=== PATIENT | female | born 1955 | race Caucasian/White ===

== ENCOUNTER → 2024-09-28 | Outpatient (CLI) | payer MEDICARE, BC, SELFPAY ==
--- NOTE | 2024-09-28 16:00 | XR_ITS ---
Exam: MRI knee without contrast, right complete Date and time of exam: September 28, 2024 1716 hrs. Comparison December 26, 2023 Indications: Knee pain 8 years, increasing in severity Technique: Multiple axial, coronal, and sagittal sections on the knee have been obtained. T2-Weighted sagittal, fat-suppressed images, TR 3,500, TE 62, T2 weighted coronal fat-saturated images, TR 3,500, TE 62 Proton density sagittal sections, TR 1800, TE 31. T-1 weighted coronal images, TR 524, TE 13.0 Findings: Medial meniscus anterior horn intact. Medial meniscus, body replaced by isointense signal and partially extruded from the joint space, coronal image 15. Posterior horn medial meniscus vertical tears inner margin sagittal image 7. Lateral meniscus anterior horn large horizontal linear tear communicating inferior articular surface near the inner margin Lateral meniscus, body large horizontal linear tear communicating inner margin Posterior horn lateral meniscus complex tears replacing the posterior horn Anterior cruciate ligament appears attenuated Posterior cruciate ligament appears attenuated Knee effusion is moderate with synovial debris. Quadriceps and patellar tendons appear intact. There is no evidence of tendinosis. Inflammatory change or fracture of Hoffa's fat pad is not seen. Medial patellar facet demonstrates severe thinning. Lateral patellar facet cartilage demonstrates severe thinning. Trochlear cartilage demonstrates severe thinning. Marrow signal adequate. Medial collateral ligament appears intact. No meniscocapsular separation is seen. Illiotibial band and fibular collateral ligament are intact. Biceps femoris tendons appear intact. Medial femoral condylar articular cartilage demonstrates moderate thinning. Lateral femoral condylar articular cartilage demonstratesmoderate thinning. Tibial plateau cartilage demonstrates moderate thinning. Impression: Extensive medial lateral meniscus tears Significant attenuation anterior and posterior cruciate ligaments Severe thinning cartilage patellofemoral joints
== END | disposition home or self-care (01) ==
LOC: SMRI 09-30 07:07
PROVIDERS: PCP Family Medicine; Referring Provider Orthopaedic Surgery Orthopaedic Trauma; Visit Provider Orthopaedic Surgery Orthopaedic Trauma
DX: S83.281A Other tear of lateral meniscus, current injury, right knee, initial encounter (principal); S83.241A Other tear of medial meniscus, current injury, right knee, initial encounter; X58.XXXA Exposure to other specified factors, initial encounter; M25.861 Other specified joint disorders, right knee
CPT/HCPCS: 73721

== ENCOUNTER → 2024-10-23 | Outpatient (CLI) | payer MEDICARE, BC, SELFPAY ==
--- NOTE | 2024-10-23 07:00 | XR_ITS ---
Exam: MRI knee without contrast, left Date and time of exam: October 23, 2024 at 1900 hrs. Indications: Left knee pain Technique: Multiple axial, coronal, and sagittal sections on the knee have been obtained. T2-Weighted sagittal, fat-suppressed images, TR 3,500, TE 62, T2 weighted coronal fat-saturated images, TR 3,500, TE 62 Proton density sagittal sections, TR 1800, TE 31. T-1 weighted coronal images, TR 524, TE 13.0 Findings: Medial meniscus anterior horn intact. Medial meniscus, body large horizontal linear tear. Posterior horn medial meniscus horizontal linear tear communicating inferior articular surface. Lateral meniscus anterior horn horizontal linear tear Lateral meniscus, body large horizontal linear tear Posterior horn lateral meniscus complex vertical and horizontal tears Anterior cruciate ligament mild sprain Posterior cruciate ligament appears intact. Knee effusion is moderate. Quadriceps and patellar tendons appear intact. There is no evidence of tendinosis. Inflammatory change or fracture of Hoffa's fat pad is not seen. Medial patellar facet demonstrates moderate thinning. Lateral patellar facet cartilage demonstrates moderate thinning. Trochlear cartilage demonstrates moderate thinning. Marrow signal increased in the distal femoral shaft, 23 mm, consider bone infarct. Medial collateral ligament appears intact. No meniscocapsular separation is seen. Illiotibial band and fibular collateral ligament are intact. Biceps femoris tendons appear intact. Medial femoral condylar articular cartilage demonstrates moderate thinning. Lateral femoral condylar articular cartilage demonstratesmoderate thinning. Tibial plateau cartilage demonstrates moderate thinning. Impression: Extensive medial lateral meniscus tears Mild sprain anterior cruciate ligament
--- NOTE | 2024-10-23 07:30 | XR_ITS ---
Examination: MRI lumbar spine without contrast Date and time of exam: October 23, 2024 1935 hrs. Indications: Patient fell April 2022 with injury to lower back, persistent lower back pain radiating down the legs numbness in the right first digit Technique: Multiple MRI axial and sagittal sections lumbar spine. Sagittal T2-weighted images, TR 3500, TE 118 T1 weighted transverse sections, TR 688 T8.5, T2-weighted sagittal sections T1 weighted sagittal sections TR 621, TE 30 T2 axial sections, TR 4, 190, TE 84. Findings: Adequate alignment lumbar vertebral bodies Moderately severe compression fracture, chronic L4 Moderate chronic compression fracture L5 No acute fracture Adequate marrow signal Diffuse lumbar disc desiccation No spondylolisthesis L5-S1 3 mm central lumbar disc bulge L4-L5 moderate overall spinal stenosis, 5 mm central lumbar disc bulge, facet arthropathy and thickening of ligamentum flavum with mild left L4 ganglionic compression L3-L4 left foraminal disc bulges but no ganglionic compression L2-L3 no disc protrusion L1-L2 no disc protrusion Impression: Chronic compression fractures L4 and L5 L5-S1 3 mm central lumbar disc bulge L4-L5 moderate overall spinal stenosis, 5 mm central lumbar disc bulge and mild left L4 ganglionic compression
== END | disposition home or self-care (01) ==
PROVIDERS: PCP Family Medicine; Referring Provider Orthopaedic Surgery Orthopaedic Trauma; Visit Provider Orthopaedic Surgery Orthopaedic Surgery of the Spine
DX: S83.282A Other tear of lateral meniscus, current injury, left knee, initial encounter (principal); S83.512A Sprain of anterior cruciate ligament of left knee, initial encounter; X58.XXXA Exposure to other specified factors, initial encounter; M48.56XA Collapsed vertebra, not elsewhere classified, lumbar region, initial encounter for fracture; M51.379 Other intervertebral disc degeneration, lumbosacral region without mention of lumbar back pain or lower extremity pain; M51.369 Other intervertebral disc degeneration, lumbar region without mention of lumbar back pain or lower extremity pain; M48.061 Spinal stenosis, lumbar region without neurogenic claudication; G95.20 Unspecified cord compression
CPT/HCPCS: 72148; 73721

== ENCOUNTER 2025-04-09 20:43 | Inpatient (IN) | payer MEDICARE, BC, SELFPAY ==
[2025-04-09 20:48] VITALS: BP 160/95; PULSE 83; RESP 18; TEMP 37.3; O2SAT 96
--- NOTE | 2025-04-09 20:48 | XR_ITS ---
Examination: CTA carotids with intravenous contrast CTA brain, head with intravenous contrast. 2-D sagittal, coronal reconstructions. 3-D reconstructions. Exam date and time: April 09, 2025 2106 hours INDICATIONS: Stroke alert, onset left-sided facial weakness beginning this morning CTDI: vol (mGy) 11.3 DLP: (mGycm) 442 Technique: Multiple CTA axial brain, head carotid images post intravenous contrast injection 75 cc, [id number]. 2-D sagittal, coronal reconstructions. 3-D reconstructions, 3-D post processing including vascular maximum intensity projection images. Low dose protocols were performed. One or more of the following dose reduction techniques were used; automated exposure control, adjustment of the mA and/or KV according to patient size, use of iterative reconstruction technique. Findings: No significant common carotid carotid bifurcation or internal carotid artery stenoses Dominant left vertebral artery in the neck with no critical stenoses No cerebral arteries depressed lateral occlusions or thrombus IMPRESSION: No significant neck arterial stenoses No cerebral large vessel occlusions or thrombus
--- NOTE | 2025-04-09 20:48 | XR_ITS ---
Examination: CT brain head without contrast. 2-D sagittal coronal reconstructions Date and time of exam:April 09, 20252058 hours INDICATIONS: Stroke alert, onset left-sided body weakness facial droop beginning 11:00 AM today CTDI: vol (mGy):43.4 DLP: (mGycm):819 Technique: Multiple CT axial sections of the brain have been obtained, 5 mm slice thickness. Contrast has not been administered. 2-D sagittal, coronal reconstructions have been obtained Low dose protocols were performed. One or more of the following dose reduction techniques were used; automated exposure control, adjustment of the mA and/or KV according to patient size, use of iterative reconstruction technique. Findings: No significant ventricular enlargement. Intra-axial or extra-axial hemorrhage density is not seen. No mass effect or midline shift Basal cisterns are not remarkable. Fourth ventricle is midline. Cranial vault intact. Impression: Negative for acute hemorrhage, mass effect or midline shift
--- NOTE | 2025-04-09 20:48 | EKG_ITS ---
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
--- NOTE | 2025-04-09 20:50 | EDNOTE_ITS ---
<Statement entered by Shweta Garcia MD - 04/10/25 21:40> As co-signing physician, I was present and available for consult prn. I concur with the plan and care as documented by the midlevel provider. Neuro Symptoms Deficit-RME/HPI General Chief Complaint: Neuro Symptoms/Deficit Stated Complaint: BALANCE PROBLEM Time Seen by Provider: 04/09/25 20:48 Arrival date/time: 04/09/25 20:43 RME / HPI RME / HPI Narrative: 70-year-old female patient with significant history of hypertension, hypothyroidism, was brought in by family for evaluation regarding left-sided weakness. Apparently last well-known time was 11 AM this morning patient noticed sudden onset of left-sided weakness, cannot write on the left hand patient is left-handed and dragging her feet on the left. Patient denies any headache. Patient also complained of left-sided neck pain. Denies any slurring of speech however there is obvious facial asymmetry noted also. Patient is not taking any blood thinner. Related Data Home Medications ?Medication ?Instructions ?Recorded ?Confirmed Levothyroxine * (SYNTHROID *) 100 mcg PO ACBR #0 tabs 08/20/16 05/04/18 armodafinil 250 mg tablet (Nuvigil) 250 mg PO QDAY ##0 08/20/16 05/04/18 amlodipine 10 mg tablet (Norvasc) 10 mg PO QDAY #0 tab s 01/14/17 05/04/18 gabapentin 300 mg capsule 300 mg PO TID 01/04/19 methylphenidate HCl 18 mg 36 mg PO QDAY 01/04/19 tablet,extended release 24 hr metronidazole 500 mg tablet 500 mg PO BID 01/04/19 (Flagyl) Previous Rx's ?Medication ?Instructions ?Recorded diazepam 10 mg tablet 10 mg PO BID PRN muscle spas m #6 04/27/24 tabs ibuprofen 600 mg tablet 600 mg PO Q8H PRN pain #14 t abs 04/27/24 Allergies Allergy/AdvReac Type Severity Reaction Status Date / Time codeine Allergy Severe Hives Verified 07/26/22 10:16 hydrocodone (From [place]) Allergy Severe Hives Verified 07/26/22 10:16 Sulfa (Sulfonamide Allergy Severe Hives Verified 07/06/21 14:49 Antibiotics) cephalexin AdvReac Severe caused Verified 07/06/21 14:49 colitis infection Review of Systems Review of Systems Narrative Review of Systems: Review of system reviewed and within normal limits except mentioned in HPI ED Exam Narrative Physical exam: VITAL SIGNS: Reviewed. GENERAL APPEARANCE: Alert and interactive, follows commands, no acute distress, HEAD AND FACE: Non-traumatic. Facial symmetry noted, I noticed some facial droop on the left side ENT: PERRL, pink conjunctivitis, eyelid no trauma, Mucous membrane moist. NECK: Supple, nontender, no nuchal rigidity. CHEST: No tenderness, no crepitus, no paradoxical movement, no retractions. LUNGS: Clear, well ventilated, symmetric, no rales, no wheezing, no ronchi, no stridor, good breath sounds bilaterally. HEART: Regular rate, regular rhythm, no murmur, no gallops. ABDOMEN: Soft, positive bowel sounds, nondistended, no guarding, nontender, no rebound, no masses, RECTAL: Deferred. GENITAL: Deferred. NEUROLOGICAL: Gross motor function intact sensory function intact, Appropriate for age. MUSCULOSKELETAL: low back nontender, full range of motion. EXTREMITIES: Nontender, full range of motion. SKIN: Color pink, dry, no rash, no lacerations, no abrasions, no contusions. LYMPHATICS: Deferred. Course Quality Measures none Orders Category Date Time Status Bedside Blood Glucose NOW Care 04/09/25 20:48 Completed COVID-19 Screening Questionnaire NOW Care 04/09/25 22:26 Active Melter Assistant NOW Care 04/09/25 20:48 Active Continuous Pulse Oximetry NOW Care 04/09/25 20:48 Completed Decision to Admit X1 Care 04/09/25 22:26 Active EKG (ED ONLY) *Do not use* NOW Care 04/09/25 20:48 Completed Fingerstick [Bedside Blood Glucose] NOW Care 04/09/25 20:47 Active In and Out Catheter NEEDED Care 04/09/25 20:48 Active Insert IV NOW Care 04/09/25 20:48 Active NIH Stroke Scale now Care 04/09/25 20:48 Active NPO NOW Care 04/09/25 20:48 Active Nurse Swallow Screen x1 Care 04/09/25 20:48 Active Consult to Neurology / Tele-Neurology Routine Cons 04/09/25 20:[address] angio stroke protocol Stat Exams 04/09/25 20:[address] stroke protocol Stat Exams 04/09/25 20:48 Completed EKG (ED Only) Stat Exams 04/09/25 20:48 Draft CBC Stat Lab 04/09/25 20:53 Completed Comprehensive Metabolic Panel Stat Lab 04/09/25 20:53 Results Drug Screen,Urine Stat Lab 04/09/25 21:46 Received HCG Titer if Positive Stat Lab 04/09/25 20:53 Results Magnesium Stat Lab 04/09/25 20:53 Results Partial Thromboplastin Time Stat Lab 04/09/25 20:53 Completed Prothrombin Time with INR Stat Lab 04/09/25 20:53 Completed Troponin I Stat Lab 04/09/25 20:53 Results Urinalysis Stat Lab 04/09/25 21:46 Received Urine Culture Stat Lab 04/09/25 21:46 Received Clopidogrel [Plavix] Med 04/09/25 21:15 Discontinued 300 mg PO X1 ONE Ondansetron Inj [Zofran Inj] Med 04/09/25 20:48 Active 4 mg IVP Q4HR PRN Oxygen Delivery NOW RT 04/09/25 20:48 Active Vital Signs Vital signs: Vital Signs Temperature 99.1 F 04/09/25 20:48 Pulse Rate 83 04/09/25 20:48 Respiratory Rate 18 04/09/25 20:48 Blood Pressure 160/95 H 04/09/25 20:48 Pulse Oximetry (%) 96 04/09/25 20:48 Oxygen Delivery Method Room Air 04/09/25 20:48 Neuro Symptoms / Deficit MDM Narrative MDM Narrative:: 70-year-old female patient with significant history of hypertension, hypothyroidism, was brought in by family for evaluation regarding left-sided weakness. Apparently last well-known time was 11 AM this morning patient noticed sudden onset of left-sided weakness, cannot write on the left hand patient is left-handed and dragging her feet on the left. Patient denies any headache. Patient also complained of left-sided neck pain. Denies any slurring of speech however there is obvious facial asymmetry noted also. Patient is not taking any blood thinner. EKG showed sinus bradycardia, ventricular to 53 bpm, OR interval 165 MS, no ST segment elevation or depression. Stroke alert was initiated right away on my initial evaluation. I was able to spoke with telemetry neurologist, who recommends loading dose of Plavix, and admit the patient for stroke workup. Patient is not a candidate for tPA since out of window. CT scan of the head and CT angiogram of the head and neck all came back unremarkable. Patient's neurological workup also came back normal. Plan of care discussed with the patient who agrees to be admitted for stroke workup. Patient data External records reviewed:: None Clinical information provided by:: patient Social determinants that could affect healthcare access:: none Patient has the following chronic illnesses:: Hypertension, hypothyroidism How is presenting disease/condition affected by chronic disease/condition?: exacerbated by Evaluation data The following diagnostics were reviewed and interpreted by me:: lab results, radiology exam(s) and EKG tracing(s) Lab and/or radiology exams considered but not ordered:: None Interpretation Summary: See results MDM Medications / Prescriptions Medications or Prescriptions considered but not ordered:: None Medication administrations:: Medication Administration History Ondansetron HCl (Ondansetron Inj 2 Mg/Ml Inj 2 Ml) 4 mg IVP Q4HR PRN PRN Reason: NAUSEA OR VOMITING Stop: 05/09/25 20:47 Discontinued Medications Clopidogrel Bisulfate (Clopidogrel Bisulfate 75 Mg Tablet) 300 mg PO X1 ONE Stop: 04/09/25 21:16 Last Admin: 04/09/25 21:25 Dose: 300 mg Documented By: HEMANT Plavix Consultations Consultation(s) initiated? (list below): No Diagnosis Neuro Differential Diagnosis: cerebrovascular accident and transient cerebral ischemia Most likely diagnosis given after review of the tests above:: CVA Admission Indicated Admission indicated?: indicated Admission Request Was there a request for admission?: Yes Admission Attestation Admission request attestation: Discussed case with Hospitalist service regarding admission. Discussed patients ED course, exam findings, labs, and radiology results. The Hospitalist [agreesto accept the patient for admission. Disposition Plan Disposition Plan: Admit Discharge Plan Plan Patient Disposition: Admit Acute Care w/in Hospital Discharge Disposition comment: Stable Prescriptions/Referrals Prescriptions/Med Rec: No Action metronidazole [Flagyl] 500 mg tablet 500 mg PO BID gabapentin 300 mg capsule 300 mg PO TID methylphenidate HCl 18 mg tablet extended release 24hr 36 mg PO QDAY armodafinil [Nuvigil] 250 MG tablet 250 mg PO QDAY Qty: 0 Levothyroxine * (SYNTHROID *) 100 MCG tablet 100 mcg PO ACBR Qty: 0 amlodipine [Norvasc] 10 MG tablet 10 mg PO QDAY Qty: 0 diazepam 10 mg tablet 10 mg PO BID PRN (Reason: muscle spasm) Qty: 6 0RF ibuprofen 600 mg tablet 600 mg PO Q8H PRN (Reason: pain) Qty: 14 0RF Problem List Clinical Impression: Acute CVA (cerebrovascular accident) Patient/Caregiver Discharge Instructions Print Language: Trinidadian Stand Alone Forms: Maria Elena Award Info., Patient Portal Info Letter
[2025-04-09 21:13] VITALS: BMI 26.3
[2025-04-09 21:18] VITALS: PULSE 79
[2025-04-09 21:18] LABS: Basophils # (Auto) 0.1 Thou/mm3 (0.0-0.2); Basophils % (Auto) 1 % (0-2.5); Eosinophils # (Auto) 0.3 Thou/mm3 (0.0-0.5); Eosinophils % (Auto) 4 % (0-10); Hematocrit 44.2 % (36.0-46.0); Hemoglobin 14.9 g/dL (12.0-16.0); Immature Granulocytes Auto 0.03 Thou/mm3 (0.00-0.00); Lymphocytes # (Auto) 1.9 Thou/mm3 (1.0-4.8); Lymphocytes % (Auto) 22 % (10-50); Mean Corpuscular HGB Conc 33.7 g/dl (31.0-37.0); Mean Corpuscular Hemoglobin 32.4 pg (25.0-35.0); Mean Corpuscular Volume 96 fL (80-100); Monocytes # (Auto) 0.6 Thou/mm3 (0.0-0.8); Monocytes % (Auto) 7 % (0-12); Neutrophils # (Auto) 5.9 Thou/mm3 (1.8-7.7); Neutrophils % (Auto) 67 % (37-80); Nucleated Red Blood Cell # 0.00 Thou/mm3 (0.00-0.00); Nucleated Red Blood Cell % 0 /100 WBC (0); Platelet Count 259 Thou/mm3 (140-440); RDW Standard Deviation 45.0 fL (36.4-46.3); Red Blood Count 4.60 Miln/mm3 (4.00-5.20); White Blood Count 8.9 Thou/mm3 (3.6-11.0)
--- NOTE | 2025-04-09 21:19 | PD.TNEURO ---
Tele Neuro Consultation Consultation Date 04/09/25 Most Recent Vital Signs Last Vital Signs Temp 99.1 F 04/09/25 20:48 Pulse 83 04/09/25 20:48 Resp 18 04/09/25 20:48 BP 160/95 H 04/09/25 20:48 Pulse Ox 96 04/09/25 20:48 O2 Del Method Room Air 04/09/25 20:48 Consultation Narrative [facility] Tele[facility]rology Consult Services Patient Name:???Nela Taylor Date of :???1955 Identification Number:??? Date of Service:???04/09/2025 20:47:38 Diagnosis:?I63.89 - Cerebrovascular accident (CVA) due to other mechanism ([facility]) Impression: ?70 yr old female with hx of HTN and thyroid disease presenting with left facial droop and left LE weakness. NIHSS of 3. CT negative for acute findings. CTA pending. Pt is outside the window for thrombolytic therapy. If CTA is negative for an LVO, recommend admission for further stroke workup. Our recommendations are outlined below. Recommendations: ? Stroke/Telemetry Floor ? Neuro Checks (Q2) ? Bedside Swallow Eval ? DVT Prophylaxis ? IV Fluids, Normal Saline ? Head of Bed 30 Degrees ? Euglycemia and Avoid Hyperthermia (PRN Acetaminophen) ? Bolus with Clopidogrel 300 mg bolus x1 and initiate dual antiplatelet therapy with Aspirin 81 mg daily and Clopidogrel 75 mg daily ? Antihypertensives PRN if Blood pressure is greater than 220/120 or there is a concern for End organ damage/contraindications for permissive HTN. If blood pressure is greater than 220/120 give labetalol PO or IV or Vasotec IV with a goal of 15% reduction in BP during the first 24 hours. Sign Out: ? Discussed with Emergency Department Provider Advanced Imaging:Advanced imaging has been ordered. Results pending. Metrics: Last Known Well: 04/09/2025 10:00:00 Dispatch Time: 04/09/2025 20:47:38 Arrival Time: 04/09/2025 20:50:00 Initial Response Time: 04/09/2025 20:50:18Symptoms: Left facial droop. Initial patient interaction: 04/09/2025 20:51:10 NIHSS Assessment Completed: 04/09/2025 20:55:48Patient is not a candidate for Thrombolytic. Thrombolytic Medical Decision: 04/09/2025 20:55:50Patient was not deemed candidate for Thrombolytic because of following reasons: LKW outside 4.[address] Head: I personally reviewed all the CT images that were available to me and it showed: no acute abnormalities Primary Provider Notified of Diagnostic Impression and Management Plan on: 04/09/2025 21:15:44 History of Present Illness:Patient is a 70 year old Female. Patient was brought by EMS for symptoms of Left facial droop. 70 yr old female with hx of HTN and thyroid disease presenting with left facial droop and left LE weakness. Pt report that she woke up around 1000am today with no issues. Then she developed neck pain and noticed that her balance was off. When she walks she feels that she move to the left. She was also noted to have left sided facial droop. No prior hx of stroke. ? Past Medical History: ?Hypertension ?There is no history of Stroke Medications: No Anticoagulant use? Antiplatelet use:?Yes?ASA 81mg daily Reviewed EMR for current medications Allergies:? Reviewed Social History: Drug Use: No Family History: There is no family history of premature cerebrovascular disease pertinent to this consultation ROS : 14 Points Review of Systems was performed and was negative except mentioned in HPI. Past Surgical History: There Is No Surgical History Contributory To Today?s Visit ? Examination: BP(164/96),?Pulse(73), 1A: Level of Consciousness - Alert; keenly responsive?+ 0 1B: Ask Month and Age - Both Questions Right?+ 0 1C: Blink Eyes & Squeeze Hands - Performs Both Tasks?+ 0 2: Test Horizontal Extraocular Movements - Normal?+ 0 3: Test Visual Mcnulty - No Visual Loss?+ 0 4: Test Facial Palsy (Use Grimace if Obtunded) - Minor paralysis (flat nasolabial fold, smile asymmetry)?+ 1 5A: Test Left Arm Motor Drift - No Drift for 10 Seconds?+ 0 5B: Test Right Arm Motor Drift - No Drift for 10 Seconds?+ 0 6A: Test Left Leg Motor Drift - Drift, but doesn't hit bed?+ 1 6B: Test Right Leg Motor Drift - No Drift for 5 Seconds?+ 0 7: Test Limb Ataxia (FNF/Heel-Case) - Ataxia in 1 Limb?+ 1 8: Test Sensation - Normal; No sensory loss?+ 0 9: Test Language/Aphasia - Normal; No aphasia?+ 0 10: Test Dysarthria - Normal?+ 0 11: Test Extinction/Inattention - No abnormality?+ 0 NIHSS Score:?3 Pre-Morbid Modified [place] Scale:0 Points = No symptoms at all Spoke with :?Dr. Rascon This consult was conducted in real time using interactive audio and video technology. Patient was informed of the technology being used for this visit and agreed to proceed. Patient located in hospital and provider located at home/office setting. Patient is being evaluated for possible acute neurologic impairment and high probability of imminent or life-threatening deterioration. I spent total of 31 minutes providing care to this patient, including time for face to face visit via telemedicine, review of medical records, imaging studies and discussion of findings with providers, the patient and/or family. Dr Lizandro Regalado [facility] For Inpatient follow-up with [facility] physician please call [facility] at . As we are not an outpatient service for any post hospital discharge needs please contact the hospital for assistance. If you have any questions for the [facility] physicians or need to reconsult for clinical or diagnostic changes please contact us via [facility] at . ?
--- NOTE | 2025-04-09 21:22 | PC.NURSE ---
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
[2025-04-09] MEDS: CLOPIDOGREL BISULFATE 75 MG TABLET 300 MG PO (21:25)
--- NOTE | 2025-04-09 21:30 | PC.NURSE ---
pt presented to ed for left side droping and left side weakness while walking. pt states that symptoms began around 11am 04/09/2025. pt states that she is legally blind from right eye. pt recently had a right knee replacement in december.
[2025-04-09 21:36] LABS: INR 1.0 (0.9-1.3); Partial Thromboplastin Time 26.0 Seconds (22.0-36.0); Prothrombin Time 11.1 Seconds (9.0-12.2)
[2025-04-09 21:47] LABS: Alanine Aminotransferase 39 U/L (10-49); Albumin, Serum 4.3 gm/dL (3.4-4.8); Albumin/Globulin Ratio 1.5 (1.2-2.2); Alkaline Phosphatase 77 U/L (46-116); Anion Gap 11 (7-16); Aspartate Amino Transferase 41 U/L (0-34); BUN/Creatinine Ratio 17 Ratio (12-20); Bilirubin,Total 0.6 mg/dL (0.3-1.2); Blood Urea Nitrogen 17 mg/dL (9-23); Calcium 10.0 mg/dL (8.3-10.6); Calcium (Corrected) 10.0 mg/dL (8.5-10.1); Carbon Dioxide 26.6 mMol/L (20.0-31.0); Chloride 97 mMol/L (98-107); Creatinine (Component) 1.0 mg/dL (0.6-1.3); Estimated Creatinine Clearance 53.1 mL/min (>60); Globulin 2.8 gm/dL (2.3-3.5); Glucose 164 mg/dL (74-106); Magnesium 2.2 mg/dL (1.6-2.6); Osmolality,Calculated 275 (275-295); Potassium 3.9 mMol/L (3.4-5.1); Sodium 135 mMol/L (136-145); Total Protein 7.1 gm/dL (5.7-8.2); Troponin I < 0.002 ng/mL (0.0-0.045); eGFR > 60 See Note
[2025-04-09 21:48] VITALS: BP 133/85
[2025-04-09 21:49] VITALS: BP 133/85; PULSE 72; RESP 13; TEMP 36.9; O2SAT 97
[2025-04-09 21:54] LABS: Collection Type, Urine Clean Catch
[2025-04-09 22:22] LABS: Bilirubin,Urine Negative (Negative); Blood,Urine Negative (Negative); Clarity,Urine Clear (Clear/Hazy); Color,Urine Yellow (Lt Yel-Yel); Glucose, Urine Negative (Negative); Ketones,Urine Negative (Negative); Leukocyte Esterase,Urine Positive (Negative); Nitrite,Urine Positive (Negative); PH,Urine 6.5 (5.0-7.0); Protein,Urine Negative (Neg - Trace); RBC,Urine 10 /hpf (0-3); Specific Gravity,Urine 1.047 (1.001-1.035); Squamous Epithelial Cell,Urine 8 /hpf (0-5); Urobilinogen,Urine Negative mg/dL (0.0-1.0); WBC,Urine 15 /hpf (0-5)
[2025-04-09 22:39] LABS: HCG Titer if Positive Negative
--- NOTE | 2025-04-09 22:46 | ECHO_ITS ---
Transthoracic Echo Report Ht (in): 66 Wt (lb): 163 Exam Location: Echo Lab Status: Preadmit Counter Intelligence: Mikaela Lee Indications: Procedure Performed: BP: 129 / 62 HR: 62 Technical Quality: Technically difficult study MEASUREMENTS (Male / Female) Normal Values 2D ECHO LV Diastolic Diameter PLAX 4.5 cm 4.2 - 5.9 / 3.9 - 5.3 cm LV Systolic Diameter PLAX 3.1 cm IVS Diastolic Thickness 1.0 cm 0.6 - 1.0 / 0.6 - 0.9 cm LVPW Diastolic Thickness 1.1 cm 0.6 - 1.0 / 0.6 - 0.9 cm LV Relative Wall Thickness 0.5 LVOT Diameter 2.0 cm Aortic Root Diameter 3.1 cm LV Ejection Fraction MOD 4C 51.2 % LV Cardiac Index MOD 4C 1376.1 cm?/min?m? LV Ejection Fraction 4C AL 52.0 % LV Cardiac Index 4C AL 1518.7 cm?/min?m? LA Volume Index 21.6 cm?/m? 16 - 28 cm?/m? Ascending Aorta Diameter 3.0 cm M-MODE Aortic Root Diameter MM 2.7 cm LA Systolic Diameter MM 3.2 cm LA Ao Ratio MM 1.2 AV Cusp Separation MM 2.0 cm DOPPLER AV Peak Velocity 112.0 cm/s AV Peak Gradient 5.0 mmHg AV Mean Gradient 2.0 mmHg AV Velocity Time Integral 26.1 cm AI Peak Velocity 241.5 cm/s AI Peak Gradient 23.3 mmHg AI Pressure Half Time 1037.0 ms LVOT Peak Velocity 78.5 cm/s LVOT Peak Gradient 2.5 mmHg LVOT Velocity Time Integral 19.3 cm LVOT Cardiac Index 2010.5 cm?/min?m? AV Area Cont Eq vti 2.3 cm? AV Area Cont Eq pk 2.2 cm? MV Area PHT 3.7 cm? Mitral E Point Velocity 45.6 cm/s Mitral A Point Velocity 77.6 cm/s Mitral E to A Ratio 0.6 LV E' Lateral Velocity 6.9 cm/s Mitral E to LV E' Lateral Ratio 6.7 LV E' Septal Velocity 4.2 cm/s Mitral E to LV E' Septal Ratio 10.8 PV Peak Velocity 76.0 cm/s PV Peak Gradient 2.3 mmHg FINDINGS Left Ventricle Normal left ventricular size, wall thickness, systolic function with no obvious regional wall motion abnormalities.there is grade I diastolic dysfunction of the left ventricle (impaired relaxation pattern). The ejection fraction is visually estimated at 55-60 %. Right Ventricle The right ventricle is normal in size and systolic function. Left Atrium The left atrium is normal by two-dimensional, color flow and Doppler imaging with no structural abnormalities, no thrombus formation present. Right Atrium The right atrium is normal by two-dimensional imaging, color flow and Doppler imaging with no structural abnormalities, no thrombus formation present. Atrial Septum The interatrial septum appears normal with no evidence of a shunt. Aorta The aorta is normal by two-dimensional, color flow and Doppler interrogation. Mitral Valve The mitral valve is normal by two-dimensional, color flow and Doppler interrogation. There is no significant mitral valve regurgitation, stenosis or prolapse. Aortic Valve The aortic valve is trileaflet and normal by two-dimensional, color flow and Doppler interrogation. Mild aortic valve regurgitation. Tricuspid Valve The tricuspid valve is normal by two-dimensional, color flow and Doppler interrogation. There is trace tricuspid valve regurgitation. Pulmonic Valve The pulmonic valve is not well visualized. There is no significant pulmonic valve regurgitation. Vessels The pulmonary artery appears normal. The inferior vena cava pulmonary and hepatic veins appear normal. Pericardium The pericardium is normal by two-dimensional imaging. There is no significant pericardial effusion. CONCLUSIONS Indication: Stroke Negative bubbly study Bubble study negative for any PFO or ASD. Consider KIRAN if high index of clinical suspicion. Normal LV size and function with an estimated EF of 55 to 60%. Grade 1 diastolic dysfunction noted. Normal RV size and function. Normal RVSP. Mild aortic valve sclerosis without stenosis. Trace MR and TR. No pericardial effusion. Sammy Mercado (Electronically Signed) Final Date: 10 April 2025 13:00
--- NOTE | 2025-04-09 22:48 | PD.RESHP ---
Documentation for date of: 04/09/25 HPI History of Present Illness Chief complaint: Left facial droop, left lower extremity weakness History of present illness: 70-year-old female with past medical history of hypertension and hypothyroidism presenting to the ED on 04/09 with left facial droop and left lower extremity weakness. Patient states that sometime around 12 PM on 04/09 she started experiencing at first left neck pain followed by gradually worsening left facial droop and left lower extremity weakness. Patient also states that she noticed that her writing started becoming smaller than it usually is. Patient's family members told her to come to the ED as her symptoms did not resolve but also did not worsen as the day went on. She denies having any other similar symptoms in the past but does state that one of her sons also had strokelike episode in the past which she called a TIA. Patient denies having any concerning cardiac symptoms at this time such as chest pain, palpitations, shortness of breath and denies having any fever/chills or sick contacts. Patient has been seen in the past by Dr. Dean cardiology in [place] for palpitations but EKG at the time was unremarkable. Patient was told that she does not need to follow-up with Dr. Dean again. Medical history: As stated above Surgical history: Right knee replacement and left thumb surgery Allergies: Codeine causes hives, hydrocodone causes hives, sulfa causes hives, cephalexin colitis like infection? Medications: Pending med rec Family history: Patient denies having any family history of stroke/heart attack but son had a TIA? Social history: Patient lives in [place] with , denies any alcohol, tobacco or illicit drug use ROS: All 12 systems assessed and the patient denies unless otherwise stated in HPI In the ED, patient presented hypertensive 160/95, heart rate 83, respiratory 18, afebrile satting 96 on room air. Pertinent lab findings included sodium 135, chloride 97, EGFR greater than 60, magnesium 2.2, troponin less than 0.002. Urinalysis was negative for any signs of infection and U tox was also negative. Head CT showed no acute findings in head CTA neck showed no significant neck arterial stenosis or LVO. EKG showed sinus rhythm with short SC interval, left axis deviation, right bundle branch block and ST depressions noted from V4-V6. Teleneurology was consulted in the ED who agreed with patient with an NIHSS score of 3 and provided recommendations for admission. Patient will be admitted for stroke rule out along with an order of MR stroke protocol and physical therapy consultation. Exam Vital Signs Temp Pulse Resp BP Pulse Ox O2 Del Method 98.4 F 72 13 133/85 H 97 Room Air 04/09/25 21:49 04/09/25 21:49 04/09/25 21:49 04/09/25 21:49 04/09/25 21:49 04/09/25 21:49 Narrative Exam Physical Exam: GENERAL: Awake, answering questions appropriately, appears stated age HEENT: NC/AT. Moist mucosa. PERRLA/EOMI. CARDIO: Heart RRR, no obvious murmurs, no JVD. PULM: No coughing or visible SOB. Lungs CTA B/L. GI: Abdomen soft, NT/ND, +BS. SKIN/MSK/EXT: Scar from right knee replacement noted. No wounds/discoloration/rashes/edema/amputations. +Pedal pulses present B/L. NEURO: Oriented x3, cranial nerves II to XII grossly intact, [id number] test intact, muscle strength in upper and lower extremities 5 out of 5, child psychologist strength 5 out of 5, Moves extremities x4, no focal neurologic deficits noted Results: Labs 04/09/25 20:53 04/09/25 20:53 Labs: Short CBC 04/09/25 Range/Units 20:53 WBC 8.9 (3.6-11.0) Thou/mm3 Hgb 14.9 (12.0-16.0) g/dL Hct 44.2 (36.0-46.0) % Plt Count 259 (140-440) Thou/mm3 BMP 04/09/25 20:53 Sodium 135 L Potassium 3.9 Chloride 97 L Carbon Dioxide 26.6 BUN 17 Creatinine 1.0 Glucose 164 H Calcium 10.0 Cardiac Enzymes 04/09/25 Range/Units 20:53 Troponin I < 0.002 (0.0-0.045) ng/mL Liver Function 04/09/25 Range/Units 20:53 Total Bilirubin 0.6 (0.3-1.2) mg/dL AST 41 H (0-34) U/L ALT 39 (10-49) U/L Alkaline Phosphatase 77 (46-116) U/L Albumin 4.3 (3.4-4.8) gm/dL Urine 04/09/25 Range/Units 21:46 Urine Color Yellow (Lt Yel-Yel) Urine Clarity Clear (Clear/Hazy) Urine pH 6.5 (5.0-7.0) Ur Specific [place] 1.047 H (1.001-1.035) Urine Protein Negative (Neg - Trace) Urine Glucose (UA) Negative (Negative) Quality Measures Quality Measures none Advance care planning discussed with:: patient Medications Home Medications and Allergies Home Medications ?Medication ?Instructions ?Recorded ?Confirmed ?Type Levothyroxine * (SYNTHROID *) 100 mcg PO ACBR #0 tabs 08/20/16 04/09/25 History armodafinil 250 mg tablet (Nuvigil) 250 mg PO QDAY ##0 08/20/16 04/09/25 History amlodipine 10 mg tablet (Norvasc) 10 mg PO QDAY #0 tabs 01/14/17 04/09/25 History gabapentin 300 mg capsule 300 mg PO TID 01/04/19 04/09/25 History methylphenidate HCl 18 mg 36 mg PO QDAY 01/04/19 04/09/25 History tablet,extended release 24 hr metronidazole 500 mg tablet 500 mg PO BID 01/04/19 04/09/25 History (Flagyl) dupilumab 300 mg/2 mL subcutaneous 300 mg subcut .q2week 04/09/25 04/09/25 History syringe (Dupixent) modafinil 200 mg tablet 200 mg PO QDAY 04/09/25 04/09/25 History nebivolol 10 mg tablet 10 mg PO QDAY 04/09/25 04/09/25 History Allergies Allergy/AdvReac Type Severity Reaction Status Date / Time codeine Allergy Severe Hives Verified 07/26/22 10:16 hydrocodone (From [place]) Allergy Severe Hives Verified 07/26/22 10:16 Sulfa (Sulfonamide Allergy Severe Hives Verified 07/06/21 14:49 Antibiotics) cephalexin AdvReac Severe caused Verified 07/06/21 14:49 colitis infection Visit Medications Acetaminophen (Acetaminophen 325 Mg Tablet) 650 mg PO Q6H PRN PRN Reason: PAIN SCALE 1-3 (mild Stop: 05/09/25 22:43 Aspirin (Aspirin Ec 81 Mg Tabec) 81 mg PO QDAY WILLIAM Stop: 05/10/25 08:59 Clopidogrel Bisulfate (Clopidogrel Bisulfate 75 Mg Tablet) 75 mg PO QDAY WILLIAM Stop: 05/10/25 08:59 Heparin Sodium (Porcine) (Heparin Sod Inj 5000 Unit/Ml Vial) 5,000 unit SC Q12HR WILLIAM Stop: 04/24/25 08:59 Ondansetron HCl (Ondansetron Inj 2 Mg/Ml Inj 2 Ml) 4 mg IVP Q4HR PRN PRN Reason: NAUSEA OR VOMITING Stop: 05/09/25 20:47 Sennosides (Senna Tablet) 1 tab PO QDAY PRN; Protocol PRN Reason: constipation Stop: 05/09/25 22:43 Discontinued Medications Clopidogrel Bisulfate (Clopidogrel Bisulfate 75 Mg Tablet) 300 mg PO X1 ONE Stop: 04/09/25 21:16 Last Admin: 04/09/25 21:25 Dose: 300 mg Assessment & Plan Plan 70-year-old female with past medical history of hypertension and hypothyroidism presenting to the ED on 04/09 with left facial droop and left lower extremity weakness will be admitted for stroke rule out along with an order of MR stroke protocol and physical therapy consultation. #Stroke rule out #Possible TIA? As noted above, patient presented with neurologic symptoms starting at around 12 PM on 04/09 which did not subside until she presented to the ED On examination, patient neurologic exam is grossly unremarkable at this time During ED workup, teleneurology was consulted and with patient NIHSS score of [address] showed no acute findings head CTA neck showed no significant neck arterial stenosis or LVO. EKG showed sinus rhythm with short SC interval, left axis deviation, right bundle branch block and ST depressions noted from V4-V6 Plan: Continue aspirin and Plavix Started patient on atorvastatin 40 mg p.o. 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 Zander Whalen DO PGY-2 Internal Medicine - GME Attending Provider Attestation/Addendum After examination of the patient and review of the clinical data I feel that this patient needs admission to the hospital for further treatment/evaluation. I have discussed and was present for the essential components of the history, physical examination, diagnosis, and treatment plan with the resident. I agree with the patient's care as documented by the resident and amended herein by me. Roger Fermin DO. Although this document has been carefully reviewed, there may still be some phonetic and other typographical errors. These errors are purely grammatical due to imperfections in the software program and should not be construed in any way to compromise the substance of the patient's medical care during this visit. Patient seen and evaluated in the ED. Patient is a 70-year-old female with a significant past medical history of hypertension, hypothyroidism, COPD, presented to the ED for left lower extremity weakness and left facial droop which began around noon on 04/09. She also endorses agraphia. Denies similar symptoms in the past however per family may have had a TIA in the past. Denies chest pain, palpitations, headache, shortness of breath, vision trouble. Apparently she did follow-up with cardiology in the past for palpitations however was informed she did not need any recurrent visits. Patient subsequently admitted for CVA rule out. In the ED, vital signs stable, patient was afebrile, SpO2 97% on room air. CBC unremarkable, BMP only demonstrated a chloride of 97. UA was positive however patient asymptomatic, U tox unremarkable, CT head negative for any acute intracranial pathology, or acute stroke, CTA unremarkable, EKG demonstrating NSR. Teleneurology consulted, recommended usual stroke precautions to include neurochecks, bedside swallow eval, DVT prophylaxis, IVF, HOB at 30 degrees, DAPT with aspirin and Plavix and permissive hypertension. Patient subsequently admitted to telemetry, in-house neurology consulted, MRI brain ordered, echo ordered, speech therapy ordered, will continue DAPT, will allow for permissive hypertension for the next 24 to 48 hours, lipid panel and A1c have been ordered and are pending. ED did order urine culture however patient asymptomatic urinary rosales and so will defer antibiotics at this time. Will restart home medications as appropriate.
[2025-04-09 22:59] VITALS: BMI 26.2
[2025-04-09 23:13] VITALS: PULSE 79; RESP 100; RESP 18; O2SAT 100
[2025-04-09] MEDS: INSULIN LISPRO (AdmeLOG) 1 UNIT/0.01 ML UNIT SC (23:43)
[2025-04-10] VITALS (8 sets, daily range): BP systolic 127–158; BP diastolic 74–97; PULSE 58–112; RESP 18–95; TEMP 36.1–36.5; O2SAT 93–100; BMI 24.7
[2025-04-10 00:01] LABS: Amphetamine/Methamp Scrn,U Negative (Negative); Barbiturate Screen,Urine Negative (Negative); Benzodiazepines Screen,Urine Negative (Negative); Benzoylecgonine Screen, Ur Negative (Negative); Fentanyl Screen,Urine Negative (Negative); Opiate Screen,Urine Negative (Negative); THC Screen,Urine Negative (Negative)
[2025-04-10] MEDS: LEVOTHYROXINE SODIUM 100 MCG TABLET PO (05:08)
[2025-04-10 06:17] LABS: Basophils # (Auto) 0.1 Thou/mm3 (0.0-0.2); Basophils % (Auto) 1 % (0-2.5); Eosinophils # (Auto) 0.4 Thou/mm3 (0.0-0.5); Eosinophils % (Auto) 6 % (0-10); Hematocrit 44.1 % (36.0-46.0); Hemoglobin 14.9 g/dL (12.0-16.0); Immature Granulocytes Auto 0.01 Thou/mm3 (0.00-0.00); Lymphocytes # (Auto) 1.5 Thou/mm3 (1.0-4.8); Lymphocytes % (Auto) 27 % (10-50); Mean Corpuscular HGB Conc 33.8 g/dl (31.0-37.0); Mean Corpuscular Hemoglobin 32.3 pg (25.0-35.0); Mean Corpuscular Volume 96 fL (80-100); Monocytes # (Auto) 0.5 Thou/mm3 (0.0-0.8); Monocytes % (Auto) 9 % (0-12); Neutrophils # (Auto) 3.2 Thou/mm3 (1.8-7.7); Neutrophils % (Auto) 57 % (37-80); Nucleated Red Blood Cell # 0.00 Thou/mm3 (0.00-0.00); Nucleated Red Blood Cell % 0 /100 WBC (0); Platelet Count 226 Thou/mm3 (140-440); RDW Standard Deviation 44.8 fL (36.4-46.3); Red Blood Count 4.61 Miln/mm3 (4.00-5.20); White Blood Count 5.7 Thou/mm3 (3.6-11.0)
[2025-04-10 06:38] LABS: Alanine Aminotransferase 31 U/L (10-49); Albumin, Serum 3.8 gm/dL (3.4-4.8); Albumin/Globulin Ratio 1.3 (1.2-2.2); Alkaline Phosphatase 67 U/L (46-116); Anion Gap 9 (7-16); Aspartate Amino Transferase 31 U/L (0-34); BUN/Creatinine Ratio 11 Ratio (12-20); Bilirubin,Total 0.6 mg/dL (0.3-1.2); Blood Urea Nitrogen 9 mg/dL (9-23); Calcium 9.0 mg/dL (8.3-10.6); Calcium (Corrected) 9.2 mg/dL (8.5-10.1); Carbon Dioxide 27.8 mMol/L (20.0-31.0); Cardiac Risk Estimate 3.8 RATIO (3.7-5.6); Chloride 102 mMol/L (98-107); Cholesterol 189 mg/dL (132-200); Creatinine (Component) 0.8 mg/dL (0.6-1.3); Estimated Creatinine Clearance 60.4 mL/min (>60); Globulin 3.0 gm/dL (2.3-3.5); Glucose 128 mg/dL (74-106); HDL Cholesterol 50 mg/dL (40-60); LDL Cholesterol,Calculated 121 mg/dL (0-130); Magnesium 2.1 mg/dL (1.6-2.6); Osmolality,Calculated 278 (275-295); Phosphorous 3.9 mg/dL (2.4-5.1); Potassium 3.8 mMol/L (3.4-5.1); Sodium 139 mMol/L (136-145); Total Protein 6.8 gm/dL (5.7-8.2); Triglycerides 92 mg/dL (30-150); eGFR > 60 See Note
[2025-04-10 07:16] LABS: Glucose Estimated Average 120 mg/dL (80-131); Hemoglobin A1C 5.8 % Hgb (4.8-6.0)
[2025-04-10] MEDS: HEPARIN SOD INJ 5000 UNIT/ML VIAL SC ×2 (08:25→20:07)
[2025-04-10] MEDS: ACETAMINOPHEN 325 MG TABLET 650 MG PO (08:25)
[2025-04-10] MEDS: ASPIRIN EC 81 MG TABEC PO (08:25)
[2025-04-10] MEDS: CLOPIDOGREL BISULFATE 75 MG TABLET PO (08:26)
--- NOTE | 2025-04-10 10:03 | ESPR_ITS ---
Documentation for date of: 04/10/25 Subjective Subjective Interval history: Patient seen and examined at bedside. She continues to report facial droop and difficulty with handwriting. Denies headache, nausea, vomiting, dizziness, vision changes, or confusion. This morning she again felt transient weakness in her left leg while standing at the sink, though no fall occurred. She reports overall improvement compared to admission. Exam Vital Signs Temp Pulse Resp BP Pulse Ox O2 Del Method 97.0 F 60 18 132/80 H 96 Room Air 04/10/25 08:00 04/10/25 08:00 04/10/25 08:00 04/10/25 08:00 04/10/25 08:00 04/10/25 08:00 Narrative Exam General: Awake, alert, cooperative, in no acute distress HEENT: NCAT, moist mucous membranes, PERRLA, EOMI, no visual deficits Neck: Supple, no lymphadenopathy or stiffness CV: RRR, no murmurs, rubs, or gallops Lungs: Clear to auscultation bilaterally, no rales or wheezes, non-labored breathing Abdomen: Soft, non-tender, non-distended, positive bowel sounds Extremities: No edema, no cyanosis, 2+ pulses bilaterally, full ROM Neuro: Oriented x3, CN II?XII grossly intact except for persistent L facial droop, 5/5 strength in all extremities, intact sensation, micrographia persists Objective Labs 04/10/25 05:38 04/10/25 05:38 Labs: Laboratory Results - last 24 hr 04/09/25 04/09/25 04/10/25 20:53 21:46 05:38 WBC 8.9 5.7 RBC 4.60 4.61 Hgb 14.9 14.9 Hct 44.2 44.1 MCV 96 96 MCH 32.4 32.3 MCHC 33.7 33.8 RDW Std Deviation 45.0 44.8 Plt Count 259 226 D Neut % (Auto) 67 57 Lymph % (Auto) 22 27 [place] % (Auto) 7 9 Eos % (Auto) 4 6 Baso % (Auto) 1 1 Neut # (Auto) 5.9 3.2 Lymph # (Auto) 1.9 1.5 [place] # (Auto) 0.6 0.5 Eos # (Auto) 0.3 0.4 Baso # (Auto) 0.1 0.1 Immature Gran # (Auto) 0.03 H 0.01 H Absolute Nucleated RBC 0.00 0.00 Immature Gran % 0 0 Nucleated RBC % 0 0 PT 11.1 INR 1.0 APTT 26.0 Sodium 135 L 139 Potassium 3.9 3.8 Chloride 97 L 102 Carbon Dioxide 26.6 27.8 Anion Gap 11 9 BUN 17 9 Creatinine 1.0 0.8 Estim Creat Clear Calc 53.1 L 60.4 L eGFR > 60 > 60 BUN/Creatinine Ratio 17 11 L Glucose [address] Glu mg/dL 120 Hemoglobin A1c 5.8 Calculated Osmolality 275 278 Calcium 10.0 9.0 Corrected Calcium 10.0 9.2 Phosphorus 3.9 Magnesium 2.2 2.1 Total Bilirubin 0.6 0.6 AST 41 H 31 ALT 39 31 Alkaline Phosphatase 77 67 Troponin I < 0.002 Total Protein 7.1 6.8 Albumin 4.3 3.8 D Globulin 2.8 3.0 Albumin/Globulin Ratio 1.5 1.3 Triglycerides 92 Cholesterol 189 LDL Cholesterol, Calc 121 HDL Cholesterol 50 Cholesterol/HDL Ratio 3.8 Ur Collection Type Clean Catch Urine Color Yellow Urine Clarity Clear Urine pH 6.5 Ur Specific [place] 1.047 H Urine Protein Negative Urine Glucose (UA) Negative Urine Ketones Negative Urine Blood Negative Urine Nitrite Positive Urine Bilirubin Negative Urine Urobilinogen (Auto) Negative Ur Leukocyte Esterase Positive Urine RBC 10 H Urine WBC 15 H Ur Squamous Epith Cells 8 H Urine Bacteria None Urine Opiates Screen Negative Urine Fentanyl Screen Negative Ur Barbiturates Screen Negative U Amphetamin/Meth Scrn Negative U Benzodiazepines Scrn Negative U Cocaine Metab Screen Negative U Marijuana (THC) Screen Negative HCG (Qual) Negative Quality Measures Quality Measures none Advance care planning discussed with:: patient Assessment & Plan Assessment Current Active Medications: Generic Name Dose Route Start Last Admin Trade Name Freq PRN Reason Stop Dose Admin Acetaminophen 650 mg 04/09/25 22:44 04/10/25 08:25 Acetaminophen 325 Mg Tablet PO 05/09/25 22:43 650 mg Q6H PRN Administration PAIN SCALE 1-3 (mild Albuterol 2 puff 04/10/25 05:54 Albuterol Inh 8 Gm INH 05/09/25 22:57 Q4H PRN sob Aspirin 81 mg 04/10/25 09:00 04/10/25 08:25 Aspirin Ec 81 Mg Tabec PO 05/10/25 08:59 81 mg QDAY WILLIAM Administration Atorvastatin Calcium 40 mg 04/10/25 21:00 Atorvastatin Calcium 20 Mg Tablet PO 05/10/25 20:59 HS WILLIAM Clopidogrel Bisulfate 75 mg 04/10/25 09:00 04/10/25 08:26 Clopidogrel Bisulfate 75 Mg Tablet PO 05/10/25 08:59 75 mg QDAY WILLIAM Administration Dextrose 25 ml 04/09/25 22:49 Dextrose 50%-Water Inj 50 Ml Syringe IV 05/09/25 22:48 Q15MIN PRN BG 50-70 responsive npo pt Dextrose 50 ml 04/09/25 22:49 Dextrose 50%-Water Inj 50 Ml Syringe IV 05/09/25 22:48 Q15MIN PRN BG <50 OR BG <70 & pt unresponsive Glucagon 1 mg 04/09/25 22:49 Glucagon Inj 1 Mg Vial IM Q15MIN PRN BG <70, and no IV access Heparin Sodium (Porcine) 5,000 unit 04/10/25 09:00 04/10/25 08:25 Heparin Sod Inj 5000 Unit/Ml Vial SC 04/24/25 08:59 5,000 unit Q12HR WILLIAM Administration Insulin Human Lispro 0 unit 04/10/25 07:30 04/10/25 08:20 Insulin Lispro (Admelog) 1 Unit/0.01 Ml Unit SC 05/10/25 07:29 Not Given ACHS [facility] Protocol Levothyroxine Sodium 100 mcg 04/10/25 06:00 04/10/25 05:08 Levothyroxine Sodium 100 Mcg Tablet PO 05/10/25 05:59 100 mcg ACBR WILLIAM Administration Ondansetron HCl 4 mg 04/09/25 20:48 Ondansetron Inj 2 Mg/Ml Inj 2 Ml IVP 05/09/25 20:47 Q4HR PRN NAUSEA OR VOMITING Sennosides 1 tab 04/09/25 22:44 Senna Tablet PO 05/09/25 22:43 QDAY PRN constipation Protocol Plan 70F with HTN and hypothyroidism presenting with acute L facial droop, LLE weakness, and micrographia, concerning for possible TIA or evolving CVA. Still has persistent symptoms with mild improvement. # Stroke rule out / Possible TIA Persistent facial droop, micrographia, and transient subjective LLE weakness CT/CTA negative TTE with normal EF (55?60%) and negative bubble study MRI still pending Passed swallow evaluation ? now on cardiac diet Plan: * Continue dual antiplatelet (ASA 81 mg + Clopidogrel 75 mg daily) * Continue Atorvastatin 40 mg nightly * Q2 neuro checks * Allow permissive hypertension for 24 hrs * Resume home medications after 24 hrs if stable * PT evaluation to assess mobility * Monitor MRI results once available # Hypertension BP stable; permissive HTN in effect Plan: * Hold home antihypertensives x24 hrs, reassess afterward * Resume Amlodipine if stable # Hypothyroidism Plan: * Resume Levothyroxine after 24 hrs # Hyperlipidemia Plan: * Continue Atorvastatin, monitor for myopathy * Review lipid panel if done # Hyperglycemia Plan: * Sliding scale insulin * A1c pending Health Maintenance: * Diet: Cardiac, now PO after passing swallow eval * IVF: NS * DVT prophylaxis: Heparin SQ * Code: Full * Disposition: Continue stroke/TIA workup; awaiting MRI; ongoing PT eval ----- Plan discussed with attending physician Dr. Michelle Gill MD PGY-1 Internal Medicine Attending Provider Attestation/Addendum I attest that I was physically present for the evaluation, physical examination, lab and imaging review of the patient with the residents. I discussed the case with the residents and agree with the findings and plans of care as documented above. Patient is a 70 years old female with past medical history of hypertension, hypothyroidism who presented to the ED with complaint of facial droop and left lower extremity weakness. She was admitted overnight for management of acute CVA/TIA. At bedside, continues to have facial droop, difficulty in handwriting and difficulty ambulating. Awaiting brain MRI, physical therapy evaluation. Yisel Martinez MD
--- NOTE | 2025-04-10 18:43 | PD.RESCONSUL ---
HPI Data of Consult Requesting Physician: Carlos Fermin DO Admitting Provider: Carlos Fermin DO Attending Provider: Carlos Fermin DO Primary Care Provider: Physician No Primary/Family Consult Narrative History of present illness: Ms. Taylor is a 70-year-old female with past medical history of hypertension, hypothyroidism, hyperlipidemia who presented on 04/09 with left-sided weakness in the face and lower extremity. Initial NIHSS 3. Patient assessed at bedside. She notes increased slurred speech that has developed since yesterday. She reports that she no longer feels weak on the left side, and that her left side of the mouth has always had a slight droop at rest. She denies headache, changes in vision, weakness, urinary symptoms including urgency, frequency. Patient notes that when she stands she veers to the left, though this is only positional on standing and not occur at rest when she is laying down or sitting. Patient also notes that her writing has changed. She notes that her letters are smaller when she does the crossword puzzle cc:: cc: Carlos Fermin DO Review of Systems Review of Systems Narrative Review of Systems: 14 point review systems negative other than HPI Exam Vital Signs Temp Pulse Resp BP Pulse Ox O2 Del Method 97.0 F 64 19 158/95 H 96 Room Air 04/10/25 16:00 04/10/25 16:00 04/10/25 16:00 04/10/25 16:00 04/10/25 16:00 04/10/25 16:00 Narrative Exam General: No acute distress, well nourished Eye: PERRL, EOMI, normal conjunctiva, no scleral icterus HENT: Normocephalic, atraumatic, hearing intact to conversation at normal volume, moist oral mucosa Neck: Supple, non-tender, no JVD, no lymphadenopathy Lungs: Non-labored respirations, symmetric chest rise Heart: Peripheral pulses intact bilaterally Abdomen: Soft, non-tender, non-distended Musculoskeletal: Normal range of motion and strength Skin: Skin is warm, dry, no rashes or lesions. Psychiatric: Cooperative, appropriate mood and affect Neurologic: Mental status: Orientation: Oriented to person, place, time, and situation Communication: Patient is cooperative and can follow simple instructions Language:Mildly slurred speech, normal rate and volume, comprehension intact Cranial nerves: CN II: Visual hsu intact CN III: Pupils equal, round, and reactive to light CN III, IV, : No gaze deviation, no nystagmus Horizontal pursuit: intact Vertical pursuit: intact Ptosis: none CN V: Facial sensation to light touch intact bilaterally at the forehead, cheeks, and jaw line CN VII: Face symmetric, no facial droop appreciated on smile (patient's left mouth lower than right at baseline) CN VIII: Able to hear and respond to conversation at normal volume, intact to finger rub CN IX, X: Palate elevation symmetric, uvula midline CN XI: Head turn and shoulder shrug strong, symmetric bilaterally CN XII: Normal tongue protrusion without deviation, no fasciculations Motor: Normal bulk and tone No atrophy No abnormal movements or fasciculations Muscle strength: Shoulder abduction: R 5/5 L 5/5 Elbow flexion: R 5/5 L 5/5 Elbow extension: R 5/5 L 5/5 Hip flexion: R 5/5 L 5/5 Hip extension: R 5/5 L 5/5 Knee flexion: R 5/5 L 5/5 Knee extension: R 5/5 L 5/5 Sensory: RUE: Light touch intact LUE: Light touch intact RLE: Light touch intact LLE: Light touch intact Reflexes: Biceps (C5-6): R 2+ L 2+ Brachioradialis (C5-6): R 2+ L 2+ Triceps (C7-8): R 2+ L 2+ Patellae (L3-4): R 2+ L 2+ Achilles (S1-2):R 2+ L 2+ No clonus Romberg: negative Gait: Normal stance, stride length, and arm swing Normal pivot turn without instability Results Labs 04/11/25 05:49 04/11/25 05:49 Labs: Short CBC 04/09/25 04/10/25 Range/Units 20:53 05:38 WBC 8.9 5.7 (3.6-11.0) Thou/mm3 Hgb 14.9 14.9 (12.0-16.0) g/dL Hct 44.2 44.1 (36.0-46.0) % Plt Count 259 226 D (140-440) Thou/mm3 BMP 04/09/25 04/10/25 20:53 05:38 Sodium 135 L 139 Potassium 3.9 3.8 Chloride 97 L 102 Carbon Dioxide 26.6 27.8 BUN 17 9 Creatinine 1.0 0.8 Glucose 164 H 128 H Calcium 10.0 9.0 Cardiac Enzymes 04/09/25 Range/Units 20:53 Troponin I < 0.002 (0.0-0.045) ng/mL Liver Function 04/09/25 04/10/25 Range/Units 20:53 05:38 Total Bilirubin 0.6 0.6 (0.3-1.2) mg/dL AST 41 H 31 (0-34) U/L ALT 39 31 (10-49) U/L Alkaline Phosphatase 77 67 (46-116) U/L Albumin 4.3 3.8 D (3.4-4.8) gm/dL Urine 04/09/25 Range/Units 21:46 Urine Color Yellow (Lt Yel-Yel) Urine Clarity Clear (Clear/Hazy) Urine pH 6.5 (5.0-7.0) Ur Specific [place] 1.047 H (1.001-1.035) Urine Protein Negative (Neg - Trace) Urine Glucose (UA) Negative (Negative) Quality Measures Quality Measures none Advance care planning discussed with:: patient Medications Home Medications and Allergies Home Medications ?Medication ?Instructions ?Recorded ?Confirmed ?Type Levothyroxine * (SYNTHROID *) 100 mcg PO ACBR #0 tabs 08/20/16 04/10/25 History armodafinil 250 mg tablet (Nuvigil) 250 mg PO QDAY ##0 08/20/16 04/09/25 History amlodipine 10 mg tablet (Norvasc) 10 mg PO QDAY #0 tabs 01/14/17 04/09/25 History gabapentin 300 mg capsule 300 mg PO TID 01/04/19 04/09/25 History methylphenidate HCl 18 mg 36 mg PO QDAY 01/04/19 04/09/25 History tablet,extended release 24 hr metronidazole 500 mg tablet 500 mg PO BID 01/04/19 04/09/25 History (Flagyl) dupilumab 300 mg/2 mL subcutaneous 300 mg subcut .q2week 04/09/25 04/09/25 History syringe (Dupixent) modafinil 200 mg tablet 200 mg PO QDAY 04/09/25 04/09/25 History nebivolol 10 mg tablet 10 mg PO QDAY 04/09/25 04/09/25 History alendronate 70 mg tablet 70 mg PO .WEEKLY 04/10/25 04/10/25 History duloxetine 60 mg capsule,delayed 60 mg PO DAILY 04/10/25 04/10/25 History release magnesium carb,citrate,oxide 420 mg PO DAILY 04/10/25 04/10/25 History (Magnesium Complex) tramadol 50 mg tablet 50 mg PO Q8H PRN pain 04/10/25 04/10/25 History Allergies Allergy/AdvReac Type Severity Reaction Status Date / Time codeine Allergy Severe Hives Verified 07/26/22 10:16 hydrocodone (From [place]) Allergy Severe Hives Verified 07/26/22 10:16 Sulfa (Sulfonamide Allergy Severe Hives Verified 07/06/21 14:49 Antibiotics) cephalexin AdvReac Severe caused Verified 07/06/21 14:49 colitis infection Visit Medications Acetaminophen (Acetaminophen 325 Mg Tablet) 650 mg PO Q6H PRN PRN Reason: PAIN SCALE 1-3 (mild Stop: 05/09/25 22:43 Last Admin: 04/10/25 08:25 Dose: 650 mg Albuterol (Albuterol Inh 8 Gm) 2 puff INH Q4H PRN PRN Reason: sob Stop: 05/09/25 22:57 Aspirin (Aspirin Ec 81 Mg Tabec) 81 mg PO QDAY [facility] Stop: 05/10/25 08:59 Last Admin: 04/10/25 08:25 Dose: 81 mg Atorvastatin Calcium (Atorvastatin Calcium 20 Mg Tablet) 40 mg PO HS [facility] Stop: 05/10/25 20:59 Clopidogrel Bisulfate (Clopidogrel Bisulfate 75 Mg Tablet) 75 mg PO QDAY [facility] Stop: 05/10/25 08:59 Last Admin: 04/10/25 08:26 Dose: 75 mg Dextrose (Dextrose 50%-Water Inj 50 Ml Syringe) 25 ml IV Q15MIN PRN PRN Reason: BG 50-70 responsive npo pt Stop: 05/09/25 22:48 Dextrose (Dextrose 50%-Water Inj 50 Ml Syringe) 50 ml IV Q15MIN PRN PRN Reason: BG <50 OR BG <70 & pt unresponsive Stop: 05/09/25 22:48 Glucagon (Glucagon Inj 1 Mg Vial) 1 mg IM Q15MIN PRN PRN Reason: BG <70, and no IV access Heparin Sodium (Porcine) (Heparin Sod Inj 5000 Unit/Ml Vial) 5,000 unit SC Q12HR [facility] Stop: 04/24/25 08:59 Last Admin: 04/10/25 08:25 Dose: 5,000 unit Insulin Human Lispro (Insulin Lispro (Admelog) 1 Unit/0.01 Ml Unit) 0 unit SC ACHS [facility]; Protocol Stop: 05/10/25 07:29 Last Admin: 04/10/25 17:53 Dose: Not Given Levothyroxine Sodium (Levothyroxine Sodium 100 Mcg Tablet) 100 mcg PO ACBR [facility] Stop: 05/10/25 05:59 Last Admin: 04/10/25 05:08 Dose: 100 mcg Ondansetron HCl (Ondansetron Inj 2 Mg/Ml Inj 2 Ml) 4 mg IVP Q4HR PRN PRN Reason: NAUSEA OR VOMITING Stop: 05/09/25 20:47 Sennosides (Senna Tablet) 1 tab PO QDAY PRN; Protocol PRN Reason: constipation Stop: 05/09/25 22:43 Discontinued Medications Albuterol (Albuterol Inh 8 Gm) 2 puff INH PRN PRN PRN Reason: sob Stop: 05/09/25 22:57 Clopidogrel Bisulfate (Clopidogrel Bisulfate 75 Mg Tablet) 300 mg PO X1 ONE Stop: 04/09/25 21:16 Last Admin: 04/09/25 21:25 Dose: 300 mg Insulin Human Lispro (Insulin Lispro (Admelog) 1 Unit/0.01 Ml Unit) 0 unit SC Q6HR [facility]; Protocol Stop: 05/10/25 00:00 Last Admin: 04/09/25 23:43 Dose: 1 unit Assessment & Plan Plan # Left-sided weakness of face and LLE Patient initially presented to the ED with left-sided weakness of the face and lower extremity. LKW 7 at 12 PM. Initial NIHSS 3. BP and glucose within normal limits, no electrolyte abnormalities Symptoms have now resolved, though she does have mild slurred speech. Patient also notes imbalance that is positional on standing. Not noted on physical exam as Romberg was negative and patient's gait was unremarkable. CT head without contrast was negative for acute hemorrhage, midline shift, mass effect. CTA head/neck was negative for LVO. EKG showed normal sinus rhythm at 71 with right bundle branch block, QTc 474 A1c 5.8, troponins within normal limits, lipids within normal limits, UDS negative TTE with normal EF (55?60%) and negative bubble study Plan: - Pending MRI brain stroke protocol - Continue aspirin, Plavix, atorvastatin - Permissive hypertension #UTI Patient denies urinary symptoms including burning, urgency, frequency Plan: - Pending urine culture - Management per primary team Plan discussed with Dr. Shawnee Alexander, PGY1 Attending Provider Attestation/Addendum I independently reviewed the patient's record and agree with resident's findings, assessment and plan of care. Clinical presentation: Suggestive of TIA could have been brought on by UTI. Follow-up with MRI brain continue with aspirin Plavix and statin for now.
[2025-04-10] MEDS: INSULIN LISPRO (AdmeLOG) 1 UNIT/0.01 ML UNIT SC (20:06)
[2025-04-10] MEDS: ATORVASTATIN CALCIUM 20 MG TABLET 40 MG PO (20:07)
[2025-04-11] VITALS (9 sets, daily range): BP systolic 132–159; BP diastolic 78–92; PULSE 60–83; RESP 17–97; TEMP 36.1–36.7; O2SAT 96–99; BMI 24.7
--- NOTE | 2025-04-11 | XR_ITS ---
Examinations: MRI Brain without intravenous contrast. MRI brain with intravenous contrast MRA brain with intravenous contrast. MRA brain without intravenous contrast MRA neck with intravenous contrast Date and time of exam: April 11, 2025 1017 hours INDICATIONS: Stroke alert April 09, 2025, onset focal neurologic deficit including left facial droop and left lower extremity weakness Technique: Multiple axial and sagittal images of the brain have been obtained Siemens high-resolution 1.5 Neelima short bore scanner is utilized. Sagittal sections, T1-weighted, TR 500, TE 14 Axial sections proton density and T2-weighted, TR 3,000, TE 34, TR 3,000, TE 91 Inversion recovery axial images, TR 9,260, TE 111, TI 2,500 Diffusion weighted images, axial sections, TR 4,800, TE 128, B value 1,000 Axial sections, ADC map, TR 4,800, TE 128. Contrast images have been obtained post intravenous 20 cc Gadolinium. T1-weighted axial and coronal images post contrast have been obtained. Angiographic images of neck and brain are obtained pre and post contrast. 3-D post processing performed, including brain, extracranial neck arterial maximum intensity projections Findings: Sellaturcica is not enlarged. The optic chiasm and infundibular stalk are not remarkable. Prepontine and interpeduncular cisterns are not enlarged. No localized enlargement of the medulla or maribel. Fourth ventricle and cerebellar tonsils normal in position. Subacute hemorrhage is not seen. Fourth ventricle is midline. Mass in the cerebellopontine angle region is not evident. 7th and 8th nerve complexes exhibits symmetry. Globes are symmetrical with no retro-orbital mass. Increased white matter signal moderate Diffusion-weighted images [id number] mm focus restricted diffusion right basal ganglia with matching signal deficit on the ADC map. Mass-effect upon the ventricular system is not identified. Abnormal contrast enhancement is no abnormal enhancement. MRA brain carotid images no significant carotid stenoses, no large vessel cerebral occlusions Impression: 20 mm acute infarct right basal ganglia
[2025-04-11] MEDS: LEVOTHYROXINE SODIUM 100 MCG TABLET PO (05:18)
[2025-04-11 06:22] LABS: Basophils # (Auto) 0.0 Thou/mm3 (0.0-0.2); Basophils % (Auto) 1 % (0-2.5); Eosinophils # (Auto) 0.3 Thou/mm3 (0.0-0.5); Eosinophils % (Auto) 5 % (0-10); Hematocrit 45.1 % (36.0-46.0); Hemoglobin 14.9 g/dL (12.0-16.0); Immature Granulocytes Auto 0.02 Thou/mm3 (0.00-0.00); Lymphocytes # (Auto) 1.4 Thou/mm3 (1.0-4.8); Lymphocytes % (Auto) 24 % (10-50); Mean Corpuscular HGB Conc 33.0 g/dl (31.0-37.0); Mean Corpuscular Hemoglobin 32.0 pg (25.0-35.0); Mean Corpuscular Volume 97 fL (80-100); Monocytes # (Auto) 0.6 Thou/mm3 (0.0-0.8); Monocytes % (Auto) 10 % (0-12); Neutrophils # (Auto) 3.7 Thou/mm3 (1.8-7.7); Neutrophils % (Auto) 61 % (37-80); Nucleated Red Blood Cell # 0.00 Thou/mm3 (0.00-0.00); Nucleated Red Blood Cell % 0 /100 WBC (0); Platelet Count 201 Thou/mm3 (140-440); RDW Standard Deviation 44.7 fL (36.4-46.3); Red Blood Count 4.65 Miln/mm3 (4.00-5.20); White Blood Count 6.1 Thou/mm3 (3.6-11.0)
[2025-04-11 06:44] LABS: Alanine Aminotransferase 32 U/L (10-49); Albumin, Serum 3.8 gm/dL (3.4-4.8); Albumin/Globulin Ratio 1.2 (1.2-2.2); Alkaline Phosphatase 62 U/L (46-116); Anion Gap 11 (7-16); Aspartate Amino Transferase 33 U/L (0-34); BUN/Creatinine Ratio 14 Ratio (12-20); Bilirubin,Total 0.7 mg/dL (0.3-1.2); Blood Urea Nitrogen 11 mg/dL (9-23); Calcium 9.2 mg/dL (8.3-10.6); Calcium (Corrected) 9.4 mg/dL (8.5-10.1); Carbon Dioxide 26.2 mMol/L (20.0-31.0); Chloride 101 mMol/L (98-107); Creatinine (Component) 0.8 mg/dL (0.6-1.3); Estimated Creatinine Clearance 60.4 mL/min (>60); Globulin 3.1 gm/dL (2.3-3.5); Glucose 129 mg/dL (74-106); Magnesium 1.5 mg/dL (1.6-2.6); Osmolality,Calculated 277 (275-295); Phosphorous 4.0 mg/dL (2.4-5.1); Potassium 4.1 mMol/L (3.4-5.1); Sodium 138 mMol/L (136-145); Total Protein 6.9 gm/dL (5.7-8.2); eGFR > 60 See Note
[2025-04-11] MEDS: Magnesium Sulfate 4 GM Ivpb 4 GM/50 ML BAG IV (08:18)
[2025-04-11] MEDS: ACETAMINOPHEN 325 MG TABLET 650 MG PO (08:19)
[2025-04-11] MEDS: ASPIRIN EC 81 MG TABEC PO (08:19)
[2025-04-11] MEDS: CLOPIDOGREL BISULFATE 75 MG TABLET PO (08:20)
[2025-04-11] MEDS: ONDANSETRON INJ 2 MG/ML INJ 2 ML 4 MG IVP (08:21)
[2025-04-11] MEDS: HEPARIN SOD INJ 5000 UNIT/ML VIAL SC ×2 (08:25→21:13)
--- NOTE | 2025-04-11 11:46 | PC.SS ---
Update: MRI is pending. Neurology is consulting.
--- NOTE | 2025-04-11 12:54 | PD.RESPRO ---
Documentation for date of: 04/11/25 Subjective Subjective Interval history: Patient seen at bedside, reports no new symptoms. Exam Vital Signs Temp Pulse Resp BP Pulse Ox O2 Del Method 97.2 F 61 21 H 141/83 H 99 Room Air 04/11/25 08:00 04/11/25 08:00 04/11/25 08:00 04/11/25 08:00 04/11/25 08:00 04/11/25 08:00 Narrative Exam General: No acute distress, well nourished Eye: PERRL, EOMI, normal conjunctiva, no scleral icterus HENT: Normocephalic, atraumatic, hearing intact to conversation at normal volume, moist oral mucosa Neck: Supple, non-tender, no JVD, no lymphadenopathy Lungs: Non-labored respirations, symmetric chest rise Heart: Peripheral pulses intact bilaterally Abdomen: Soft, non-tender, non-distended Musculoskeletal: Normal range of motion and strength Skin: Skin is warm, dry, no rashes or lesions. Psychiatric: Cooperative, appropriate mood and affect Neurologic: Mental status: Orientation: Oriented to person, place, time, and situation Communication: Patient is cooperative and can follow simple instructions Language:Mildly slurred speech, normal rate and volume, comprehension intact Cranial nerves: CN II: Visual hsu intact CN III: Pupils equal, round, and reactive to light CN III, IV, : No gaze deviation, no nystagmus Horizontal pursuit: intact Vertical pursuit: intact Ptosis: none CN V: Facial sensation to light touch intact bilaterally at the forehead, cheeks, and jaw line CN VII: Face symmetric, no facial droop appreciated on smile (patient's left mouth lower than right at baseline) CN VIII: Able to hear and respond to conversation at normal volume, intact to finger rub CN IX, X: Palate elevation symmetric, uvula midline CN XI: Head turn and shoulder shrug strong, symmetric bilaterally CN XII: Normal tongue protrusion without deviation, no fasciculations Motor: Normal bulk and tone No atrophy No abnormal movements or fasciculations Muscle strength: Shoulder abduction: R 5/5 L 5/5 Elbow flexion: R 5/5 L 5/5 Elbow extension: R 5/5 L 5/5 Hip flexion: R 5/5 L 5/5 Hip extension: R 5/5 L 5/5 Knee flexion: R 5/5 L 5/5 Knee extension: R 5/5 L 5/5 Sensory: RUE: Light touch intact LUE: Light touch intact RLE: Light touch intact LLE: Light touch intact Reflexes: Biceps (C5-6): R 2+ L 2+ Brachioradialis (C5-6): R 2+ L 2+ Triceps (C7-8): R 2+ L 2+ Patellae (L3-4): R 2+ L 2+ Achilles (S1-2):R 2+ L 2+ Romberg: negative Gait: Normal stance, stride length, and arm swing Normal pivot turn without instability Objective Labs 04/13/25 05:36 04/13/25 06:52 Labs: Laboratory Results - last 24 hr 04/11/25 05:49 WBC 6.1 RBC 4.65 Hgb 14.9 Hct 45.1 MCV 97 MCH 32.0 MCHC 33.0 RDW Std Deviation 44.7 Plt Count 201 Neut % (Auto) 61 Lymph % (Auto) 24 [place] % (Auto) 10 Eos % (Auto) 5 Baso % (Auto) 1 Neut # (Auto) 3.7 Lymph # (Auto) 1.4 Min[place] # (Auto) 0.6 Eos # (Auto) 0.3 Baso # (Auto) 0.0 Immature Gran # (Auto) 0.02 H Absolute Nucleated RBC 0.00 Immature Gran % 0 Nucleated RBC % 0 Sodium 138 Potassium 4.1 Chloride 101 Carbon Dioxide 26.2 Anion Gap 11 BUN 11 Creatinine 0.8 Estim Creat Clear Calc 60.4 L eGFR > 60 BUN/Creatinine Ratio 14 Glucose 129 H Calculated Osmolality 277 Calcium 9.2 Corrected Calcium 9.4 Phosphorus 4.0 Magnesium 1.5 L Total Bilirubin 0.7 AST 33 ALT 32 Alkaline Phosphatase 62 Total Protein 6.9 Albumin 3.8 Globulin 3.1 Albumin/Globulin Ratio 1.2 Quality Measures Quality Measures none Advance care planning discussed with:: patient Assessment & Plan Assessment Current Active Medications: Generic Name Dose Route Start Last Admin Trade Name Freq PRN Reason Stop Dose Admin Acetaminophen 650 mg 04/09/25 22:44 04/11/25 08:19 Acetaminophen 325 Mg Tablet PO 05/09/25 22:43 650 mg Q6H PRN Administration PAIN SCALE 1-3 (mild Albuterol 2 puff 04/10/25 05:54 Albuterol Inh 8 Gm INH 05/09/25 22:57 Q4H PRN sob Aspirin 81 mg 04/10/25 09:00 04/11/25 08:19 Aspirin Ec 81 Mg Tabec PO 05/10/25 08:59 81 mg QDAY WILLIAM Administration Atorvastatin Calcium 40 mg 04/10/25 21:00 04/10/25 20:07 Atorvastatin Calcium 20 Mg Tablet PO 05/10/25 20:59 40 mg HS WILLIAM Administration Clopidogrel Bisulfate 75 mg 04/10/25 09:00 04/11/25 08:20 Clopidogrel Bisulfate 75 Mg Tablet PO 05/10/25 08:59 75 mg QDAY WILLIAM Administration Dextrose 25 ml 04/09/25 22:49 Dextrose 50%-Water Inj 50 Ml Syringe IV 05/09/25 22:48 Q15MIN PRN BG 50-70 responsive npo pt Dextrose 50 ml 04/09/25 22:49 Dextrose 50%-Water Inj 50 Ml Syringe IV 05/09/25 22:48 Q15MIN PRN BG <50 OR BG <70 & pt unresponsive Glucagon 1 mg 04/09/25 22:49 Glucagon Inj 1 Mg Vial IM Q15MIN PRN BG <70, and no IV access Heparin Sodium (Porcine) 5,000 unit 04/10/25 09:00 04/11/25 08:25 Heparin Sod Inj 5000 Unit/Ml Vial SC 04/24/25 08:59 5,000 unit Q12HR WILLIAM Administration Insulin Human Lispro 0 unit 04/10/25 07:30 04/11/25 08:02 Insulin Lispro (Admelog) 1 Unit/0.01 Ml Unit SC 05/10/25 07:29 Not Given ACHS [facility] Protocol Levothyroxine Sodium 100 mcg 04/10/25 06:00 04/11/25 05:18 Levothyroxine Sodium 100 Mcg Tablet PO 05/10/25 05:59 100 mcg ACBR WILLIAM Administration Nebivolol 10 mg 04/11/25 10:00 Nebivolol Hcl 5 Mg Tablet (Non-Formulary) PO 05/11/25 09:59 QDAY WILLIAM Ondansetron HCl 4 mg 04/09/25 20:48 04/11/25 08:21 Ondansetron Inj 2 Mg/Ml Inj 2 Ml IVP 05/09/25 20:47 4 mg Q4HR PRN Administration NAUSEA OR VOMITING Sennosides 1 tab 04/09/25 22:44 04/11/25 08:19 Senna Tablet PO 05/09/25 22:43 1 tab QDAY PRN Administration constipation Protocol Plan # Left-sided weakness of face and LLE # Right basal ganglia ischemic stroke Patient initially presented to the ED with left-sided weakness of the face and lower extremity. LKW 04/09 at 12 PM. Initial NIHSS 3. BP and glucose within normal limits, no electrolyte abnormalities Symptoms have now resolved. Patient also notes imbalance that is positional on standing. Not noted on physical exam as Romberg was negative and patient's gait was unremarkable. CT head without contrast was negative for acute hemorrhage, midline shift, mass effect. CTA head/neck was negative for LVO. MR stroke protocol: 20 mm acute infarct right basal ganglia EKG showed normal sinus rhythm at 71 with right bundle branch block, QTc 474 A1c 5.8, troponins within normal limits, lipids within normal limits, UDS negative TTE with normal EF (55?60%) and negative bubble study PT eval 04/11: acute PT rehab Plan: - Continue ASA 81 mg and Plavix 75 mg daily x 21 days, then continue with only ASA 81 mg - Continue high intensity statin # Asymptomatic UTI Patient denies urinary symptoms including burning, urgency, frequency Ucx + E coli Plan: - Management per primary team Plan discussed with Dr. Shawnee Alexander, PGY1 Attending Provider Attestation/Addendum I personally have seen and examined the patient at the bedside and I agreed with the resident's findings, assessment and plan of care. Continue with aspirin, Plavix for 21 days followed by Plavix alone with statin for secondary prevention. Patient is weight placement in a rehab She has right basal ganglia infarction.
--- NOTE | 2025-04-11 13:10 | ESPR_ITS ---
<Statement entered by Roberth Santos MD - 04/11/25 17:15> Patient was seen and examined at the bedside. No acute overnight events reported. Patient continues to have left facial droop. Daughter was at the bedside and had concerns. She was informed that patient was found to have stroke on the MRI brain. Echo showed EF 55 to 60%. MRI brain showed 20 mm acute infarct right basal ganglia. Neurologist recommended to continue aspirin and Plavix for 21 days and continue atorvastatin. We are waiting on PT eval and anticipating discharge tomorrow based on PT evaluation. All labs and orders were reviewed. I discussed and supervised with the grad intern physician who took care of this patient. I personally saw and examined the patient. I agree with most of the assessment and plan. Disclaimer: Despite multiple revisions, due to the dictation software being used, the document bellow may not be free of grammatical errors including phonetic/typographic errors. However, this does not deter from our commitment to providing health care in the patient's best interest in mind. Plan of care discussed with attending Physician Dr. Timoteo Santos MD PGY-3 Documentation for date of: 04/11/25 Subjective Subjective Interval history: Patient seen at bedside this morning. She reports no changes in facial droop or left leg weakness; symptoms remain unchanged from yesterday. Denies headache, nausea, vomiting, dizziness, pain, or visual changes. Still no bowel movement. No urinary complaints. Exam Vital Signs Temp Pulse Resp BP Pulse Ox O2 Del Method 97.2 F 61 21 H 141/83 H 99 Room Air 04/11/25 08:00 04/11/25 08:00 04/11/25 08:00 04/11/25 08:00 04/11/25 08:00 04/11/25 08:00 Narrative Exam General: Awake, alert, cooperative, in no acute distress HEENT: NCAT, moist mucous membranes, PERRLA, EOMI, no visual deficits Neck: Supple, no lymphadenopathy or stiffness CV: RRR, no murmurs, rubs, or gallops Lungs: Clear to auscultation bilaterally, no rales or wheezes, non-labored breathing Abdomen: Soft, non-tender, non-distended, positive bowel sounds Extremities: No edema, no cyanosis, 2+ pulses bilaterally, full ROM Neuro: Oriented x3, CN II?XII grossly intact except for persistent L facial droop, 5/5 strength in all extremities, intact sensation, micrographia persists Objective Labs 04/12/25 04:39 04/12/25 04:39 Labs: Laboratory Results - last 24 hr 04/11/25 05:49 WBC 6.1 RBC 4.65 Hgb 14.9 Hct 45.1 MCV 97 MCH 32.0 MCHC 33.0 RDW Std Deviation 44.7 Plt Count 201 Neut % (Auto) 61 Lymph % (Auto) 24 Miller % (Auto) 10 Eos % (Auto) 5 Baso % (Auto) 1 Neut # (Auto) 3.7 Lymph # (Auto) 1.4 Miller # (Auto) 0.6 Eos # (Auto) 0.3 Baso # (Auto) 0.0 Immature Gran # (Auto) 0.02 H Absolute Nucleated RBC 0.00 Immature Gran % 0 Nucleated RBC % 0 Sodium 138 Potassium 4.1 Chloride 101 Carbon Dioxide 26.2 Anion Gap 11 BUN 11 Creatinine 0.8 Estim Creat Clear Calc 60.4 L eGFR > 60 BUN/Creatinine Ratio 14 Glucose 129 H Calculated Osmolality 277 Calcium 9.2 Corrected Calcium 9.4 Phosphorus 4.0 Magnesium 1.5 L Total Bilirubin 0.7 AST 33 ALT 32 Alkaline Phosphatase 62 Total Protein 6.9 Albumin 3.8 Globulin 3.1 Albumin/Globulin Ratio 1.2 Quality Measures Quality Measures VTE prophylaxis Advance care planning discussed with:: patient and child Assessment & Plan Assessment Current Active Medications: Generic Name Dose Route Start Last Admin Trade Name Freq PRN Reason Stop Dose Admin Acetaminophen 650 mg 04/09/25 22:44 04/11/25 08:19 Acetaminophen 325 Mg Tablet PO 05/09/25 22:43 650 mg Q6H PRN Administration PAIN SCALE 1-3 (mild Albuterol 2 puff 04/10/25 05:54 Albuterol Inh 8 Gm INH 05/09/25 22:57 Q4H PRN sob Aspirin 81 mg 04/10/25 09:00 04/11/25 08:19 Aspirin Ec 81 Mg Tabec PO 05/10/25 08:59 81 mg QDAY WILLIAM Administration Atorvastatin Calcium 40 mg 04/10/25 21:00 04/10/25 20:07 Atorvastatin Calcium 20 Mg Tablet PO 05/10/25 20:59 40 mg HS WILLIAM Administration Clopidogrel Bisulfate 75 mg 04/10/25 09:00 04/11/25 08:20 Clopidogrel Bisulfate 75 Mg Tablet PO 05/10/25 08:59 75 mg QDAY WILLIAM Administration Dextrose 25 ml 04/09/25 22:49 Dextrose 50%-Water Inj 50 Ml Syringe IV 05/09/25 22:48 Q15MIN PRN BG 50-70 responsive npo pt Dextrose 50 ml 04/09/25 22:49 Dextrose 50%-Water Inj 50 Ml Syringe IV 05/09/25 22:48 Q15MIN PRN BG <50 OR BG <70 & pt unresponsive Glucagon 1 mg 04/09/25 22:49 Glucagon Inj 1 Mg Vial IM Q15MIN PRN BG <70, and no IV access Heparin Sodium (Porcine) 5,000 unit 04/10/25 09:00 04/11/25 08:25 Heparin Sod Inj 5000 Unit/Ml Vial SC 04/24/25 08:59 5,000 unit Q12HR WILLIAM Administration Insulin Human Lispro 0 unit 04/10/25 07:30 04/11/25 08:02 Insulin Lispro (Admelog) 1 Unit/0.01 Ml Unit SC 05/10/25 07:29 Not Given ACHS WILLIAM Protocol Levothyroxine Sodium 100 mcg 04/10/25 06:00 04/11/25 05:18 Levothyroxine Sodium 100 Mcg Tablet PO 05/10/25 05:59 100 mcg ACBR WILLIAM Administration Nebivolol 10 mg 04/11/25 10:00 Nebivolol Hcl 5 Mg Tablet (Non-Formulary) PO 05/11/25 09:59 QDAY WILLIAM Ondansetron HCl 4 mg 04/09/25 20:48 04/11/25 08:21 Ondansetron Inj 2 Mg/Ml Inj 2 Ml IVP 05/09/25 20:47 4 mg Q4HR PRN Administration NAUSEA OR VOMITING Sennosides 1 tab 04/09/25 22:44 04/11/25 08:19 Senna Tablet PO 05/09/25 22:43 1 tab QDAY PRN Administration constipation Protocol Plan 70 female with ischemic stroke (right basal ganglia infarct), persistent left facial droop and micrographia, neurologically stable. # Acute ischemic stroke (right basal ganglia infarct) Confirmed infarct on MRI; persistent but stable neuro deficits (facial droop, handwriting, subjective left lower extremity weakness) Neuro has cleared, awaiting PT eval CT/CTA negative TTE with normal EF (55?60%) and negative bubble study Plan: * Continue dual antiplatelet (ASA 81 mg + Clopidogrel 75 mg daily) * Continue Atorvastatin 40 mg nightly * Q4 neuro checks * Resumed home medications Nebivolol * PT evaluation for final dispo # Hypertension BP stable; 24-hour since permissive hypertension Plan: * Resume Nebivolol home medication * Patient denies taking amlodipine so we will hold # Hypothyroidism Plan: * Continue levothyroxine 100 mcg daily # Hyperlipidemia Plan: * Continue Atorvastatin, monitor for myopathy * Monitor for statin related symptoms # Hyperglycemia Plan: * Sliding scale insulin * A1c 5.8% Health Maintenance: * Diet: Cardiac, now PO after passing swallow eval * IVF: NS * DVT prophylaxis: Heparin SQ * Code: Full * Disposition: neuro cleared, awaiting PT evaluation ----- Plan discussed with attending physician Dr. Martinez and senior resident Dr. Danielle Gill MD PGY-1 Internal Medicine Attending Provider Attestation/Addendum I attest that I was physically present for the evaluation, physical examination, lab and imaging review of the patient with the residents. I discussed the case with the residents and agree with the findings and plans of care as documented above. At bedside today, patient is states she is feeling well and denies any new complaints. Continues to have left-sided facial droop and continues to sway on the left side while ambulating. MRI brain showed 20 mm acute infarct in right basal ganglia. Will continue with dual antiplatelet and statin. Resumed home medication for hypertension. Continues to be on sliding scale for hyperglycemia. Awaiting physical therapy evaluation. Yisel Martinez MD
[2025-04-11] MEDS: NEBIVOLOL HCL 5 MG TABLET (NON-FORMULARY) 10 MG PO (13:19)
[2025-04-11] MEDS: INSULIN LISPRO (AdmeLOG) 1 UNIT/0.01 ML UNIT SC (13:20)
--- NOTE | 2025-04-11 16:06 | PC.SS ---
MACHINE [employer]DER conducted bedside contact with the patient to confirm discharge plan. Patient confirmed discharge plan is to transition to Acute Rehab. Preferred facility is [facility] by [facility]. Patient expressed not to send referral to [facility]hab.
--- NOTE | 2025-04-11 17:25 | PC.PT ---
Patient can ambulate to the bathroom using a FWW and 1 staff assist for safety. RN made aware.
--- NOTE | 2025-04-11 17:38 | PC.SS ---
Acute rehab referrals submitted on [facility]. Responses are pending.
[2025-04-11] MEDS: DULoxetine HCL 30 MG CAPSULE 60 MG PO (17:42)
[2025-04-11] MEDS: ATORVASTATIN CALCIUM 20 MG TABLET 40 MG PO (21:13)
[2025-04-12] VITALS (11 sets, daily range): BP systolic 124–152; BP diastolic 64–95; PULSE 56–79; RESP 16–97; TEMP 36.1–36.8; O2SAT 95–98; BMI 13.0
[2025-04-12] MEDS: LEVOTHYROXINE SODIUM 100 MCG TABLET PO (05:03)
[2025-04-12 05:41] LABS: Basophils # (Auto) 0.0 Thou/mm3 (0.0-0.2); Basophils % (Auto) 1 % (0-2.5); Eosinophils # (Auto) 0.3 Thou/mm3 (0.0-0.5); Eosinophils % (Auto) 6 % (0-10); Hematocrit 44.5 % (36.0-46.0); Hemoglobin 14.8 g/dL (12.0-16.0); Immature Granulocytes Auto 0.01 Thou/mm3 (0.00-0.00); Lymphocytes # (Auto) 1.5 Thou/mm3 (1.0-4.8); Lymphocytes % (Auto) 25 % (10-50); Mean Corpuscular HGB Conc 33.3 g/dl (31.0-37.0); Mean Corpuscular Hemoglobin 31.8 pg (25.0-35.0); Mean Corpuscular Volume 96 fL (80-100); Monocytes # (Auto) 0.7 Thou/mm3 (0.0-0.8); Monocytes % (Auto) 12 % (0-12); Neutrophils # (Auto) 3.3 Thou/mm3 (1.8-7.7); Neutrophils % (Auto) 56 % (37-80); Nucleated Red Blood Cell # 0.00 Thou/mm3 (0.00-0.00); Nucleated Red Blood Cell % 0 /100 WBC (0); Platelet Count 227 Thou/mm3 (140-440); RDW Standard Deviation 44.3 fL (36.4-46.3); Red Blood Count 4.66 Miln/mm3 (4.00-5.20); White Blood Count 5.8 Thou/mm3 (3.6-11.0)
[2025-04-12 06:14] LABS: Alanine Aminotransferase 27 U/L (10-49); Albumin, Serum 3.9 gm/dL (3.4-4.8); Albumin/Globulin Ratio 1.3 (1.2-2.2); Alkaline Phosphatase 61 U/L (46-116); Anion Gap 11 (7-16); Aspartate Amino Transferase 27 U/L (0-34); BUN/Creatinine Ratio 16 Ratio (12-20); Bilirubin,Total 0.7 mg/dL (0.3-1.2); Blood Urea Nitrogen 11 mg/dL (9-23); Calcium 8.9 mg/dL (8.3-10.6); Calcium (Corrected) 9.0 mg/dL (8.5-10.1); Carbon Dioxide 25.7 mMol/L (20.0-31.0); Chloride 101 mMol/L (98-107); Creatinine (Component) 0.7 mg/dL (0.6-1.3); Estimated Creatinine Clearance 75.2 mL/min (>60); Globulin 3.0 gm/dL (2.3-3.5); Glucose 123 mg/dL (74-106); Magnesium 1.8 mg/dL (1.6-2.6); Osmolality,Calculated 276 (275-295); Phosphorous 3.2 mg/dL (2.4-5.1); Potassium 3.9 mMol/L (3.4-5.1); Sodium 138 mMol/L (136-145); Total Protein 6.9 gm/dL (5.7-8.2); eGFR > 60 See Note
--- NOTE | 2025-04-12 07:34 | PD.RESPRO ---
Documentation for date of: 04/12/25 Subjective Subjective Interval history: Patient seen at bedside. Denies new symptoms. Of note, patient had a fall in the afternoon. She was feeling a bit dizzy and leaned to the left causing a fall with a head strike when she was sitting on the toilet. Patient has noted on previous exams that she has some imbalance with standing without support, namely she veers to the left when she walks. She denies pain, nausea, vomiting, paresthesias. Orthostatics positive, primary team ordered IVF. Patient developed hematoma of left hip. Exam Vital Signs Temp Pulse Resp BP Pulse Ox O2 Del Method 96.9 F 64 18 124/71 97 Room Air 04/12/25 04:00 04/12/25 04:00 04/12/25 04:00 04/12/25 04:00 04/12/25 04:00 04/12/25 04:00 Narrative Exam General: No acute distress, well nourished Eye: PERRL, EOMI, normal conjunctiva, no scleral icterus HENT: Normocephalic, atraumatic, hearing intact to conversation at normal volume, moist oral mucosa Neck: Supple, non-tender, no JVD, no lymphadenopathy Lungs: Non-labored respirations, symmetric chest rise Heart: Peripheral pulses intact bilaterally Abdomen: Soft, non-tender, non-distended Musculoskeletal: Normal range of motion and strength Skin: Skin is warm, dry, no rashes or lesions. Psychiatric: Cooperative, appropriate mood and affect Neurologic: Mental status: Orientation: Oriented to person, place, time, and situation Communication: Patient is cooperative and can follow simple instructions Language:Mildly slurred speech, normal rate and volume, comprehension intact Cranial nerves: CN II: Visual hsu intact CN III: Pupils equal, round, and reactive to light CN III, IV, : No gaze deviation, no nystagmus Horizontal pursuit: intact Vertical pursuit: intact Ptosis: none CN V: Facial sensation to light touch intact bilaterally at the forehead, cheeks, and jaw line CN VII: Face symmetric, no facial droop appreciated on smile (patient's left mouth lower than right at baseline) CN VIII: Able to hear and respond to conversation at normal volume, intact to finger rub CN IX, X: Palate elevation symmetric, uvula midline CN XI: Head turn and shoulder shrug strong, symmetric bilaterally CN XII: Normal tongue protrusion without deviation, no fasciculations Motor: Normal bulk and tone No atrophy No abnormal movements or fasciculations Muscle strength: Shoulder abduction: R 5/5 L 5/5 Elbow flexion: R 5/5 L 5/5 Elbow extension: R 5/5 L 5/5 Hip flexion: R 5/5 L 5/5 Hip extension: R 5/5 L 5/5 Knee flexion: R 5/5 L 5/5 Knee extension: R 5/5 L 5/5 Sensory: RUE: Light touch intact LUE: Light touch intact RLE: Light touch intact LLE: Light touch intact Reflexes: Biceps (C5-6): R 2+ L 2+ Brachioradialis (C5-6): R 2+ L 2+ Triceps (C7-8): R 2+ L 2+ Patellae (L3-4): R 2+ L 2+ Achilles (S1-2):R 2+ L 2+ Romberg: negative Gait: Normal stance, stride length, and arm swing Normal pivot turn without instability Objective Labs 04/13/25 05:36 04/13/25 06:52 Labs: Laboratory Results - last 24 hr 04/12/25 04:39 WBC 5.8 RBC 4.66 Hgb 14.8 Hct 44.5 MCV 96 MCH 31.8 MCHC 33.3 RDW Std Deviation 44.3 Plt Count 227 Neut % (Auto) 56 Lymph % (Auto) 25 [place] % (Auto) 12 Eos % (Auto) 6 Baso % (Auto) 1 Neut # (Auto) 3.3 Lymph # (Auto) 1.5 [place] # (Auto) 0.7 Eos # (Auto) 0.3 Baso # (Auto) 0.0 Immature Gran # (Auto) 0.01 H Absolute Nucleated RBC 0.00 Immature Gran % 0 Nucleated RBC % 0 Sodium 138 Potassium 3.9 Chloride 101 Carbon Dioxide 25.7 Anion Gap 11 BUN 11 Creatinine 0.7 Estim Creat Clear Calc 75.2 eGFR > 60 BUN/Creatinine Ratio 16 Glucose 123 H Calculated Osmolality 276 Calcium 8.9 Corrected Calcium 9.0 Phosphorus 3.2 Magnesium 1.8 Total Bilirubin 0.7 AST 27 ALT 27 Alkaline Phosphatase 61 Total Protein 6.9 Albumin 3.9 Globulin 3.0 Albumin/Globulin Ratio 1.3 Quality Measures Quality Measures VTE prophylaxis Advance care planning discussed with:: patient Assessment & Plan Assessment Current Active Medications: Generic Name Dose Route Start Last Admin Trade Name Arsenio PRN Reason Stop Dose Admin Acetaminophen 650 mg 04/09/25 22:44 04/11/25 08:19 Acetaminophen 325 Mg Tablet PO 05/09/25 22:43 650 mg Q6H PRN Administration PAIN SCALE 1-3 (mild Albuterol 2 puff 04/10/25 05:54 Albuterol Inh 8 Gm INH 05/09/25 22:57 Q4H PRN sob Aspirin 81 mg 04/10/25 09:00 04/11/25 08:19 Aspirin Ec 81 Mg Tabec PO 05/10/25 08:59 81 mg QDAY WILLIAM Administration Atorvastatin Calcium 40 mg 04/10/25 21:00 04/11/25 21:13 Atorvastatin Calcium 20 Mg Tablet PO 05/10/25 20:59 40 mg HS WILLIAM Administration Clopidogrel Bisulfate 75 mg 04/10/25 09:00 04/11/25 08:20 Clopidogrel Bisulfate 75 Mg Tablet PO 05/10/25 08:59 75 mg QDAY WILLIAM Administration Dextrose 25 ml 04/09/25 22:49 Dextrose 50%-Water Inj 50 Ml Syringe IV 05/09/25 22:48 Q15MIN PRN BG 50-70 responsive npo pt Dextrose 50 ml 04/09/25 22:49 Dextrose 50%-Water Inj 50 Ml Syringe IV 05/09/25 22:48 Q15MIN PRN BG <50 OR BG <70 & pt unresponsive Duloxetine HCl 60 mg 04/11/25 17:00 04/11/25 17:42 Duloxetine Hcl 30 Mg Capsule PO 05/11/25 16:59 60 mg DAILY WILLIAM Administration Glucagon 1 mg 04/09/25 22:49 Glucagon Inj 1 Mg Vial IM Q15MIN PRN BG <70, and no IV access Heparin Sodium (Porcine) 5,000 unit 04/10/25 09:00 04/11/25 21:13 Heparin Sod Inj 5000 Unit/Ml Vial SC 04/24/25 08:59 5,000 unit Q12HR WILLIAM Administration Insulin Human Lispro 0 unit 04/10/25 07:30 04/11/25 21:19 Insulin Lispro (Admelog) 1 Unit/0.01 Ml Unit SC 05/10/25 07:29 Not Given ACHS WILLIAM Protocol Levothyroxine Sodium 100 mcg 04/10/25 06:00 04/12/25 05:03 Levothyroxine Sodium 100 Mcg Tablet PO 05/10/25 05:59 100 mcg ACBR WILLIAM Administration Nebivolol 10 mg 04/11/25 10:00 04/11/25 13:19 Nebivolol Hcl 5 Mg Tablet (Non-Formulary) PO 05/11/25 09:59 10 mg QDAY WILLIAM Administration Ondansetron HCl 4 mg 04/09/25 20:48 04/11/25 08:21 Ondansetron Inj 2 Mg/Ml Inj 2 Ml IVP 05/09/25 20:47 4 mg Q4HR PRN Administration NAUSEA OR VOMITING Polyethylene Glycol 17 gm 04/12/25 09:00 Polyethylene Glycol 17 Gm Packet PO 05/12/25 08:59 QDAY WILLIAM Sennosides 1 tab 04/09/25 22:44 04/11/25 08:19 Senna Tablet PO 05/09/25 22:43 1 tab QDAY PRN Administration constipation Protocol Plan # Left-sided weakness of face and LLE # Right basal ganglia ischemic stroke #Fall with head strike Patient initially presented to the ED with left-sided weakness of the face and lower extremity. LKW 04/09 at 12 PM. Initial NIHSS 3. BP and glucose within normal limits, no electrolyte abnormalities Symptoms have now resolved. Patient also notes imbalance that is positional on standing. Not noted on physical exam as Romberg was negative and patient's gait was unremarkable. CT head without contrast was negative for acute hemorrhage, midline shift, mass effect. CTA head/neck was negative for LVO. MR stroke protocol: 20 mm acute infarct right basal ganglia EKG showed normal sinus rhythm at 71 with right bundle branch block, QTc 474 A1c 5.8, troponins within normal limits, lipids within normal limits, UDS negative TTE with normal EF (55?60%) and negative bubble study PT eval 04/11: acute PT rehab 04/12: patient had fall (2/2 dizziness, + orthostatics now s/p IVF) with head strike, left hip hematoma. Repeat CT head without contrast negative for acute hemorrhage. Hip/pelvis XR negative for acute fracture. C spine XR no acute cervical fracture. Plan: - Continue ASA 81 mg daily - Continue high intensity statin - Hold Plavix in the setting of hematoma # Asymptomatic UTI Patient denies urinary symptoms including burning, urgency, frequency Ucx + E coli Plan: - Management per primary team # Left hip hematoma CT abd/pelvis w/: Hematoma lateral to the left hip 4.9 x 3.7 x 10.7 cm Plan: - Management per primary team Plan discussed with Dr. Shawnee Alexander, PGY1 Attending Provider Attestation/Addendum I personally have seen and examined the patient at the bedside and I agreed with the resident's findings, Continue with aspirin, hold Plavix as she developed hematoma in the left hip following the fall. Continue with statin, waiting for rehab placement.
[2025-04-12] MEDS: ALENDRONATE SODIUM 70 MG TABLET PO (08:45)
[2025-04-12] MEDS: NEBIVOLOL HCL 5 MG TABLET (NON-FORMULARY) 10 MG PO (08:46)
[2025-04-12] MEDS: CLOPIDOGREL BISULFATE 75 MG TABLET PO (08:47)
[2025-04-12] MEDS: ASPIRIN EC 81 MG TABEC PO (08:48)
[2025-04-12] MEDS: POLYETHYLENE GLYCOL 17 GM PACKET PO (08:48)
[2025-04-12] MEDS: HEPARIN SOD INJ 5000 UNIT/ML VIAL SC (08:48)
[2025-04-12] MEDS: DULoxetine HCL 30 MG CAPSULE 60 MG PO (08:48)
--- NOTE | 2025-04-12 11:26 | PC.SS ---
Update: Plan is to discharge patient today.
--- NOTE | 2025-04-12 11:41 | PC.SS ---
Updated urine culture results submitted to [facility] on [facility].
--- NOTE | 2025-04-12 11:43 | PC.SS ---
DIRECTOR [employer]ES informed patient that preferred facility, [facility]; has accepted the patient for placement. Patient acknowledged plan to d/c to [facility] once medically cleared. DIRECTOR [employer] updated bedside nurse.
--- NOTE | 2025-04-12 13:41 | PD.RESDS ---
Planned Discharge Date 04/12/25 DS: Providers Provider Date of admission: 04/09/25 23:02 Primary care physician: Physician No Primary/Family Admitting Provider: Carlos Fermin DO Attending Provider on Admission: Yisel Martinez MD Consults: 04/09/25 20:48 Consult to Neurology / Tele-Neurology Routine Comment: Consulting Provider: [facility] 04/09/25 22:47 Referral Physical Therapy Routine Comment: Physician Instructions: 04/09/25 22:59 Consult to Neurology / Tele-Neurology Stat Comment: cvo wkup Consulting Provider: Favian Mallory 04/11/25 14:04 Referral Speech Therapy Routine Comment: Attending Provider on DC: Yisel Martinez MD Discharging Provider: RESIDENT [place] Hospital Course Hospital Course Hospital course: The patient is a 70-year-old female with a history of hypertension, hypothyroidism, and hyperlipidemia who presented to the ED on 04/09/25 with complaints of acute onset left facial droop, left lower extremity weakness, and difficulty with handwriting. She was outside the tPA window on presentation. CT head and CTA neck were negative for acute findings. Teleneurology was consulted (NIHSS 3), and she was admitted for stroke workup. MRI brain revealed a 20 mm acute infarct in the right basal ganglia. Echocardiogram with bubble study showed an EF of 55?60%, no PFO or thrombus. Neurology recommended continuation of dual antiplatelet therapy and statin, and permissive hypertension for the first 24 hours. The patient was started on aspirin, clopidogrel, and atorvastatin. Her neurological exam remained stable throughout the admission, with persistent but non-worsening facial droop, micrographia, and subjective left leg weakness. Speech therapy evaluated her and noted mild dysarthria and functional cognitive and language skills with continued difficulty with written language using her left hand. PT and OT evaluated her and recommended acute inpatient rehabilitation due to deficits in strength and functional activity tolerance. Case management was involved to assist with placement. The patient expressed openness to rehab but also voiced she felt safe going home. She had no bowel movements for several days during the admission, so she was started on MiraLAX and senna with plans to monitor response. Urinalysis was negative; urine culture returned positive for E. coli, but the patient remained completely asymptomatic, and no antibiotics were started per current guidelines. Electrolytes remained within normal limits. Medication reconciliation was completed, and home medications were resumed (excluding amlodipine, which she no longer takes). She remained hemodynamically stable and afebrile throughout admission. She tolerated the cardiac diet after passing her swallow evaluation. Diagnoses During Admission: #Acute ischemic stroke ? Right basal ganglia infarct seen on MRI #Mild dysarthria and micrographia ? Functional deficits from stroke #Hypertension ? Permissive HTN during stroke treatment, started nebivolol #Hypothyroidism ? Resumed home levothyroxine #Hyperlipidemia ? Started atorvastatin 40 mg #Hyperglycemia ? resolved #Asymptomatic bacteriuria ? Positive E. coli urine culture, no treatment needed #Constipation ? Started on MiraLAX Discharge Plans Take aspirin 81 mg once daily and Plavix 75 mg once daily for 21 days Take atorvastatin 40 mg at bedtime daily Continue taking all medication as prescribed Follow-up with your PCP as outpatient within a week Follow-up with your neurologist as outpatient within a week In case of emergency, call 911 and come back to the ED Time Spent with Patient Time attestation: Total time spent providing and/or coordinating discharge services: Quality: Stroke Pt Provided Written Stroke Discharge Instructions: Yes Exam Vital Signs Temp Pulse Resp BP Pulse Ox O2 Del Method 97.3 F 69 18 126/85 H 96 Room Air 04/12/25 12:04/12/25 12:04/12/25 12:04/12/25 12:04/12/25 12:04/12/25 12:00 Narrative Exam Physical Exam at Discharge: General: Alert, in no acute distress HEENT: NCAT, mild left facial droop, PERRLA, moist mucous membranes CV: RRR, no murmurs Resp: Clear to auscultation bilaterally Abdomen: Soft, NT/ND, no organomegaly Extremities: No edema, 2+ pulses throughout Neuro: Oriented x3, cranial nerves II?XII intact except for L facial droop, strength 5/5 in all extremities, micrographia persists Discharge Plan Plan Patient Disposition: Xfer Skilled Nsg Fac (SNF) Patient condition on transfer: Stable Care Plan Goals: Take aspirin 81 mg once daily and Plavix 75 mg once daily for 21 days Take atorvastatin 40 mg at bedtime daily Continue taking all medication as prescribed Follow-up with your PCP as outpatient within a week Follow-up with your neurologist as outpatient within a week In case of emergency, call 911 and come back to the ED Prescriptions/Referrals Prescriptions/Med Rec: New aspirin 81 mg Tablet,Delayed Release (Dr/Ec) 81 mg PO QDAY 21 Days Qty: 21 0RF atorvastatin 40 mg tablet 40 mg PO HS Qty: 90 0RF clopidogrel 75 mg Tablet 75 mg PO QDAY 21 Days Qty: 21 0RF Continued Levothyroxine * (SYNTHROID *) 100 MCG tablet 100 mcg PO ACBR Qty: 0 nebivolol 10 mg tablet 10 mg PO QDAY Patient Comments: TAKE 1 TABLET BY MOUTH DAILY modafinil 200 mg tablet 200 mg PO QDAY Dupixent Syringe 300 mg/2 mL syringe 300 mg subcut .q2week alendronate 70 mg tablet 70 mg PO .WEEKLY Patient Comments: TAKE 1 TABLET BY MOUTH EVERY WEEK duloxetine 60 mg capsule,delayed release(DR/EC) 60 mg PO DAILY Patient Comments: TAKE 1 CAPSULE BY MOUTH DAILY Magnesium Complex 300 mg magnesium tablet 420 mg PO DAILY Discontinued metronidazole [Flagyl] 500 mg tablet 500 mg PO BID gabapentin 300 mg capsule 300 mg PO TID methylphenidate HCl 18 mg tablet extended release 24hr 36 mg PO QDAY armodafinil [Nuvigil] 250 MG tablet 250 mg PO QDAY Qty: 0 amlodipine [Norvasc] 10 MG tablet 10 mg PO QDAY Qty: 0 tramadol 50 mg tablet 50 mg PO Q8H PRN (Reason: pain) Patient Comments: TAKE 1 TABLET BY MOUTH EVERY 6 TO 8 HOURS NEEDED diazepam 10 mg tablet 10 mg PO BID PRN (Reason: muscle spasm) Qty: 6 0RF Referrals: No Primary/Family,Physician [Primary Care Provider] - Favian Mallory MD [Physician] - Patient/Caregiver Discharge Instructions Education Materials: Stroke: Resources and Support, Stroke Regaining Movement, Stroke Self Care After, Stroke Prevention Activity Print Language: Amharic Stand Alone Forms: Maria Elena Award Info., Patient Portal Info Letter
--- NOTE | 2025-04-12 14:25 | PC.SS ---
Rounding Note: Patient pending bowel movement.
--- NOTE | 2025-04-12 16:04 | PC.SS ---
Transport scheduled for patient. Patient to depart at approximately 4:25 pm. Patient, bedside nurse and Acute Rehab Facility updated.
--- NOTE | 2025-04-12 16:43 | XR_ITS ---
Examination: Bilateral hips, AP pelvis, 5 views Technique: AP, lateral views both hips, AP pelvis, 5 views Exam date and time: April 12, 2025, 1803 hours. INDICATIONS: Patient fell today with injury to left hip, left hip pain. FINDINGS: Old fractures right superior and inferior pubic rami No acute pelvic fracture. No acute hip fracture Prominent osteopenia IMPRESSION: No acute hip or pelvic fracture Please see the CT abdomen and pelvis report today
--- NOTE | 2025-04-12 16:43 | XR_ITS ---
Examination: CT brain head without contrast. 2-D sagittal coronal reconstructions Date and time of exam:April 12, 2025, 1809 hours Comparison April 09, 2025 INDICATIONS: Patient fell today, hit head, head pain CTDI: vol (mGy):44 DLP: (mGycm):868 Technique: Multiple CT axial sections of the brain have been obtained, 5 mm slice thickness. Contrast has not been administered. 2-D sagittal, coronal reconstructions have been obtained Low dose protocols were performed. One or more of the following dose reduction techniques were used; automated exposure control, adjustment of the mA and/or KV according to patient size, use of iterative reconstruction technique. Findings: No significant ventricular enlargement. Acute subacute infarct right basal ganglia, please see the brain MRI report April 11, 2025 Intra-axial or extra-axial hemorrhage density is not seen. No mass effect or midline shift Basal cisterns are not remarkable. Fourth ventricle is midline. Cranial vault intact. Impression: Negative for acute hemorrhage, mass effect or midline shift Acute subacute infarct right basal ganglia, please see the brain MRI report April 11, 2025
--- NOTE | 2025-04-12 16:44 | PC.SS ---
Code Star initiated on the patient. WATER MANGLE TENDER confirmed with attending due to event discharge will be held. WATER MANGLE TENDER notified [facility] and transport provider.
--- NOTE | 2025-04-12 16:50 | XR_ITS ---
Examination: Cervical spine 3 views TECHNIQUE: AP, lateral, coned AP odontoid cervical spine 3 views Date and time: April 12, 2025, 1838 hours. INDICATIONS: Patient fell today with injury to the neck, neck pain FINDINGS: No acute cervical fracture visualized Partial visualization C7 Advanced degenerative disc disease C5-C6, C6-C7 IMPRESSION: Recommend swimmer's lateral view cervical spine to diagnostically assess C7
--- NOTE | 2025-04-12 16:53 | PD.RESEVENT ---
Documentation for date of: 04/12/25 Event Note Event Note: Patient was found seated on the floor this afternoon after an unwitnessed fall. She stated she had attempted to go to the bathroom on her own, she got to the bathroom when getting back up from the toilet she leaned to the left while getting up and subsequently fell, striking the left posterior aspect of her head. She did not lose consciousness. Denies headache, dizziness, nausea, no vomiting, pain. No focal neurological complaints. When seen, she was alert, oriented, and sitting upright on the floor. Ordered: -CT head to evaluate for intracranial injury -Pelvis x-ray due to history of prior hip fracture -C-spine x-ray to rule out cervical injury Patient's discharge will be held until workup is done ----- Plan discussed with attending physician Dr. Martinez and senior resident Dr. Danielle Gill MD PGY-1 Internal Medicine
--- NOTE | 2025-04-12 17:02 | ESPR_ITS ---
<Statement entered by Roberth Santos MD - 04/12/25 17:57> Patient was seen and examined at the bedside this morning. She continued to have left facial droop and left-sided drift. She was going to be discharged this afternoon on aspirin Plavix and statin however patient had a fall in restroom. Will likely follow-up with head CT without contrast, x-ray C-spine, x-ray hip to rule out any acute pathology. Patient will be monitored closely. Fall prevention. Patient denied any pain and was having stable vitals. Blood pressure 157/90. Will likely keep the patient under observation discharge tomorrow once imagings are clear. Neurology will follow outpatient. Patient ended up developing large hematoma on left hip with mild tenderness. Will follow-up with CT left hip. If patient has a fracture we will likely consult orthopedics and let night resident fall. If its hematoma only will likely consult surgery. I discussed and supervised with the international tax manager physician who took care of this patient. I personally saw and examined the patient. I agree with most of the assessment and plan. Disclaimer: Despite multiple revisions, due to the dictation software being used, the document bellow may not be free of grammatical errors including phonetic/typographic errors. However, this does not deter from our commitment to providing health care in the patient's best interest in mind. Plan of care discussed with attending Physician Dr. Michelle Santos MD PGY-3 Documentation for date of: 04/12/25 Subjective Subjective Interval history: Patient seen twice today. This morning, she denied any new symptoms. Reported no changes in facial droop, handwriting, or leg weakness. Still had not had a bowel movement despite MiraLAX. She stated PT had seen her yesterday and that she wants to go to rehab but also feels ready to go home. Later today around 4:30 PM, she attempted to ambulate to the bathroom alone and fell, leaning to the left and striking the back of her head. She was found seated on the floor, alert and oriented. She denies loss of consciousness, nausea, vomiting, dizziness, headache, or pain. Discharge will be held until tomorrow after clearing up with the workup that we ordered Exam Vital Signs Temp Pulse Resp BP Pulse Ox O2 Del Method 98.2 F 62 17 132/81 H 96 Room Air 04/12/25 16:00 04/12/25 16:00 04/12/25 16:00 04/12/25 16:00 04/12/25 16:00 04/12/25 16:00 Narrative Exam General: Awake, alert, cooperative, in no acute distress HEENT: Left occipital erythema (post-fall), PERRLA, EOMI, no visual deficits Neck: Supple, no lymphadenopathy or stiffness CV: RRR, no murmurs, rubs, or gallops Lungs: Clear to auscultation bilaterally, no rales or wheezes, non-labored breathing Abdomen: Soft, non-tender, non-distended, positive bowel sounds Extremities: No edema, no cyanosis, 2+ pulses bilaterally, full ROM Neuro: Oriented x3, CN II?XII grossly intact except for persistent L facial droop, 5/5 strength in all extremities, intact sensation, micrographia persists Objective Labs 04/14/25 05:14 04/14/25 05:14 Labs: Laboratory Results - last 24 hr 04/12/25 04:39 WBC 5.8 RBC 4.66 Hgb 14.8 Hct 44.5 MCV 96 MCH 31.8 MCHC 33.3 RDW Std Deviation 44.3 Plt Count 227 Neut % (Auto) 56 Lymph % (Auto) 25 [place] % (Auto) 12 Eos % (Auto) 6 Baso % (Auto) 1 Neut # (Auto) 3.3 Lymph # (Auto) 1.5 [place] # (Auto) 0.7 Eos # (Auto) 0.3 Baso # (Auto) 0.0 Immature Gran # (Auto) 0.01 H Absolute Nucleated RBC 0.00 Immature Gran % 0 Nucleated RBC % 0 Sodium 138 Potassium 3.9 Chloride 101 Carbon Dioxide 25.7 Anion Gap 11 BUN 11 Creatinine 0.7 Estim Creat Clear Calc 75.2 eGFR > 60 BUN/Creatinine Ratio 16 Glucose 123 H Calculated Osmolality 276 Calcium 8.9 Corrected Calcium 9.0 Phosphorus 3.2 Magnesium 1.8 Total Bilirubin 0.7 AST 27 ALT 27 Alkaline Phosphatase 61 Total Protein 6.9 Albumin 3.9 Globulin 3.0 Albumin/Globulin Ratio 1.3 Quality Measures Quality Measures VTE prophylaxis Advance care planning discussed with:: patient and spouse Assessment & Plan Assessment Current Active Medications: Generic Name Dose Route Start Last Admin Trade Name Freq PRN Reason Stop Dose Admin Acetaminophen 650 mg 04/09/25 22:44 04/11/25 08:19 Acetaminophen 325 Mg Tablet PO 05/09/25 22:43 650 mg Q6H PRN Administration PAIN SCALE 1-3 (mild Albuterol 2 puff 04/10/25 05:54 Albuterol Inh 8 Gm INH 05/09/25 22:57 Q4H PRN sob Alendronate Sodium 70 mg 04/12/25 09:00 04/12/25 08:45 Alendronate Sodium 70 Mg Tablet PO 05/12/25 08:59 70 mg QWEEK@0600 WILLIAM Administration Aspirin 81 mg 04/10/25 09:00 04/12/25 08:48 Aspirin Ec 81 Mg Tabec PO 05/10/25 08:59 81 mg QDAY WILLIAM Administration Atorvastatin Calcium 40 mg 04/10/25 21:00 04/11/25 21:13 Atorvastatin Calcium 20 Mg Tablet PO 05/10/25 20:59 40 mg HS WILLIAM Administration Clopidogrel Bisulfate 75 mg 04/10/25 09:00 04/12/25 08:47 Clopidogrel Bisulfate 75 Mg Tablet PO 05/10/25 08:59 75 mg QDAY WILLIAM Administration Dextrose 25 ml 04/09/25 22:49 Dextrose 50%-Water Inj 50 Ml Syringe IV 05/09/25 22:48 Q15MIN PRN BG 50-70 responsive npo pt Dextrose 50 ml 04/09/25 22:49 Dextrose 50%-Water Inj 50 Ml Syringe IV 05/09/25 22:48 Q15MIN PRN BG <50 OR BG <70 & pt unresponsive Duloxetine HCl 60 mg 04/11/25 17:00 04/12/25 08:48 Duloxetine Hcl 30 Mg Capsule PO 05/11/25 16:59 60 mg DAILY WILLIAM Administration Glucagon 1 mg 04/09/25 22:49 Glucagon Inj 1 Mg Vial IM Q15MIN PRN BG <70, and no IV access Heparin Sodium (Porcine) 5,000 unit 04/10/25 09:00 04/12/25 08:48 Heparin Sod Inj 5000 Unit/Ml Vial SC 04/24/25 08:59 5,000 unit Q12HR WILLIAM Administration Insulin Human Lispro 0 unit 04/10/25 07:30 04/12/25 16:58 Insulin Lispro (Admelog) 1 Unit/0.01 Ml Unit SC 05/10/25 07:29 Not Given ACHS WILLIAM Protocol Levothyroxine Sodium 100 mcg 04/10/25 06:00 04/12/25 05:03 Levothyroxine Sodium 100 Mcg Tablet PO 05/10/25 05:59 100 mcg ACBR WILLIAM Administration Nebivolol 10 mg 04/11/25 10:00 04/12/25 08:46 Nebivolol Hcl 5 Mg Tablet (Non-Formulary) PO 05/11/25 09:59 10 mg QDAY WILLIAM Administration Ondansetron HCl 4 mg 04/09/25 20:48 04/11/25 08:21 Ondansetron Inj 2 Mg/Ml Inj 2 Ml IVP 05/09/25 20:47 4 mg Q4HR PRN Administration NAUSEA OR VOMITING Polyethylene Glycol 17 gm 04/12/25 09:00 04/12/25 08:48 Polyethylene Glycol 17 Gm Packet PO 05/12/25 08:59 17 gm QDAY WILLIAM Administration Sennosides 1 tab 04/09/25 22:44 04/11/25 08:19 Senna Tablet PO 05/09/25 22:43 1 tab QDAY PRN Administration constipation Protocol Plan 70 female with ischemic stroke (right basal ganglia infarct), persistent left facial droop and micrographia, medically stable. Fell today in the afternoon. # Acute ischemic stroke (right basal ganglia infarct) Confirmed infarct on MRI; persistent but stable neuro deficits (facial droop, handwriting, subjective left lower extremity weakness) Neuro has cleared, PT cleared but fell so will need reeval CT/CTA negative TTE with normal EF (55?60%) and negative bubble study Hold discharge for now due to fall Plan: * Continue dual antiplatelet (ASA 81 mg + Clopidogrel 75 mg daily) * Continue Atorvastatin 40 mg nightly * Q4 neuro checks * Resumed home medications Nebivolol * PT evaluation for final dispo # Fall/today at 4:30 PM, unwitnessed, hit head Patient fell while attempting to go to the bathroom alone did not lift left side, and struck her left occipital scalp. Alert and oriented. No loss of consciousness. Plan: * CT head, x-ray of pelvis, and C-spine x-rays ordered/pending * Neurochecks Q 1 hour x 4 post fall, then every 4 hours * Fall precautions reinforced- patient educated to call for assistance * PT to reassess safety for discharge # Hypertension BP stable; 24-hour since permissive hypertension Plan: * Resume Nebivolol home medication * Patient denies taking amlodipine so we will hold # Hypothyroidism Plan: * Continue levothyroxine 100 mcg daily # Hyperlipidemia Plan: * Continue Atorvastatin, monitor for myopathy * Monitor for statin related symptoms # Hyperglycemia Plan: * Sliding scale insulin * A1c 5.8% Health Maintenance: * Diet: Cardiac, now PO after passing swallow eval * IVF: NS * DVT prophylaxis: Heparin SQ * Code: Full * Disposition: neuro cleared, pt cleared but fell so holding discharge ----- Plan discussed with attending physician Dr. Martinez and senior resident Dr. Danielle Gill MD PGY-1 Internal Medicine Attending Provider Attestation/Addendum I attest that I was physically present for the evaluation, physical examination, lab and imaging review of the patient with the residents. I discussed the case with the residents and agree with the findings and plans of care as documented above. Yisel Martinez MD
--- NOTE | 2025-04-12 18:08 | XR_ITS ---
Examination: CT abdomen with intravenous contrast CT pelvis with intravenous contrast 2-D coronal reconstructions 2-D sagittal reconstructions Date and time of exam:April 12, 2025 1811 hours INDICATIONS: Patient fell today with injury to left hip, left hip pain. CTDI: vol (mGy) 9.28 DLP: (mGycm) 571 Technique: Multiple axial sections of the abdomen and pelvis have been obtained. 64 slice high-resolution scanner used. 3 mm axial sections have been obtained, post intravenous injection of 60 cc of Isovue 370 2-D sagittal, coronal reconstructions obtained. Low dose protocols were performed. One or more of the following dose reduction techniques were used; automated exposure control, adjustment of the mA and/or KV according to patient size, use of iterative reconstruction technique. Findings: Fluid distended esophagus with wall thickening and mucosal edema No focal liver lesions. Splenic calcifications. No extrahepatic ductal dilatation. No pancreatic mass No hydronephrosis No bowel obstruction Urinary bladder intact. Significant osteopenia Old fractures left superior and inferior pubic rami No acute fractures Hematoma lateral to the left hip, AP 4.9 cm mediolaterally 3.7 cm cephalocaudad 10.7 cm IMPRESSION: Abnormal esophagus, fluid distended with wall thickening, which may relate to reflux, consider standard esophagram follow-up No acute hip fracture Hematoma lateral to the left hip 4.9 x 3.7 x 10.7 cm
[2025-04-12 18:29] LABS: Hematocrit 41.0 % (36.0-46.0); Hemoglobin 13.8 g/dL (12.0-16.0)
--- NOTE | 2025-04-12 18:38 | EVENTNT_ITS ---
Documentation for date of: 04/12/25 Event Note Event Note: Rapid response called at bedside at around 5:30 after patient developed sudden left hip swelling and pain. Patient had a fall earlier today around 4:30 PM. During reassessment after the fall, a new large, soft, tender hematoma was noted over the left lateral hip. No deformity or shortening of the limb observed. Patient is alert, oriented, and hemodynamically stable. She denies dizziness, vision changes, headache, chest pain, SOB, or abdominal pain. Her main complaint is left hip pain at the hematoma site. Interventions: * CT pelvis STAT to assess for deep bleed or fracture * STAT H&H ordered * All anticoagulants discontinued EXCEPT aspirin 81 mg * Continued neuro and hemodynamic monitoring * Fall precautions reinforced ----- Plan discussed with attending physician Rufus Gill MD PGY-1 Internal Medicine
[2025-04-12] MEDS: ATORVASTATIN CALCIUM 20 MG TABLET 40 MG PO (20:15)
[2025-04-12] MEDS: MORPHINE SULF INJ 10 MG/ML VIAL IVP (20:16)
[2025-04-12] MEDS: ONDANSETRON INJ 2 MG/ML INJ 2 ML 4 MG IVP (22:35)
[2025-04-13] VITALS (9 sets, daily range): BP systolic 94–125; BP diastolic 56–76; PULSE 56–120; RESP 16–20; TEMP 36.1–36.6; O2SAT 92–98; BMI 25.7; BMI 15.0
[2025-04-13] MEDS: LEVOTHYROXINE SODIUM 100 MCG TABLET PO (05:35)
[2025-04-13 06:45] LABS: Basophils # (Auto) 0.0 Thou/mm3 (0.0-0.2); Basophils % (Auto) 1 % (0-2.5); Eosinophils # (Auto) 0.3 Thou/mm3 (0.0-0.5); Eosinophils % (Auto) 4 % (0-10); Hematocrit 39.0 % (36.0-46.0); Hemoglobin 13.0 g/dL (12.0-16.0); INR 1.0 (0.9-1.3); Immature Granulocytes Auto 0.02 Thou/mm3 (0.00-0.00); Lymphocytes # (Auto) 1.5 Thou/mm3 (1.0-4.8); Lymphocytes % (Auto) 24 % (10-50); Mean Corpuscular HGB Conc 33.3 g/dl (31.0-37.0); Mean Corpuscular Hemoglobin 32.3 pg (25.0-35.0); Mean Corpuscular Volume 97 fL (80-100); Monocytes # (Auto) 0.6 Thou/mm3 (0.0-0.8); Monocytes % (Auto) 9 % (0-12); Neutrophils # (Auto) 4.1 Thou/mm3 (1.8-7.7); Neutrophils % (Auto) 62 % (37-80); Nucleated Red Blood Cell # 0.00 Thou/mm3 (0.00-0.00); Nucleated Red Blood Cell % 0 /100 WBC (0); Platelet Count 299 Thou/mm3 (140-440); Prothrombin Time 10.9 Seconds (9.0-12.2); RDW Standard Deviation 45.8 fL (36.4-46.3); Red Blood Count 4.02 Miln/mm3 (4.00-5.20); White Blood Count 6.6 Thou/mm3 (3.6-11.0)
[2025-04-13 07:26] LABS: Alanine Aminotransferase 49 U/L (10-49); Albumin, Serum 3.6 gm/dL (3.4-4.8); Albumin/Globulin Ratio 1.2 (1.2-2.2); Alkaline Phosphatase 99 U/L (46-116); Anion Gap 6 (7-16); Aspartate Amino Transferase 61 U/L (0-34); BUN/Creatinine Ratio 13 Ratio (12-20); Bilirubin,Total 0.9 mg/dL (0.3-1.2); Blood Urea Nitrogen 10 mg/dL (9-23); Calcium 8.9 mg/dL (8.3-10.6); Calcium (Corrected) 9.2 mg/dL (8.5-10.1); Carbon Dioxide 27.6 mMol/L (20.0-31.0); Chloride 100 mMol/L (98-107); Creatinine (Component) 0.8 mg/dL (0.6-1.3); Estimated Creatinine Clearance 65.8 mL/min (>60); Globulin 2.9 gm/dL (2.3-3.5); Glucose 126 mg/dL (74-106); Magnesium 1.6 mg/dL (1.6-2.6); Osmolality,Calculated 269 (275-295); Phosphorous 3.7 mg/dL (2.4-5.1); Potassium 4.0 mMol/L (3.4-5.1); Sodium 134 mMol/L (136-145); Total Protein 6.5 gm/dL (5.7-8.2); eGFR > 60 See Note
[2025-04-13] MEDS: POLYETHYLENE GLYCOL 17 GM PACKET PO (08:11)
[2025-04-13] MEDS: ASPIRIN EC 81 MG TABEC PO (08:11)
[2025-04-13] MEDS: DULoxetine HCL 30 MG CAPSULE 60 MG PO (08:11)
[2025-04-13] MEDS: NEBIVOLOL HCL 5 MG TABLET (NON-FORMULARY) 10 MG PO (10:34)
--- NOTE | 2025-04-13 11:43 | PC.SS ---
Addendum entered by RUI العراقي 04/13/25 16:40: SS update: medical staff director informed patient was cleared for DC by surgeon and ready for DC this evening to [facility]. Contacted Alivia with [facility] admissions to update and verify if patient's bed was still available for this evening to DC to their facility today, Alivia informed there is no beds available for this evening at this time anymore as DC was cancelled earlier. Updated resident, patient planned for DC tomorrow, Alivia at the [facility] is also aware. Addendum entered by RUI العراقي 04/13/25 14:29: Updated Alivia with admissions at [facility] to make aware of cancelled DC. Addendum entered by RUI العراقي 04/13/25 14:27: Rounding note: Patient is experiencing pain, per medical team they will cancel DC orders for today. Addendum entered by RUI العراقي 04/13/25 12:08: SS follow: Updated Alivia with admissions at [facility] to make aware. Original Note: SS follow up: Per resident Dr. Aponte, patient to be seen by surgeon Dr. Ho before clearing for discharge to [facility]. Patient and spouse at bed side were updated.
--- NOTE | 2025-04-13 14:41 | ESPR_ITS ---
Documentation for date of: 04/13/25 Subjective Subjective Interval history: Patient evaluated at bedside. Denies headache, changes in vision, paresthesias, weakness. Reports pain in left hip at site of hematoma Exam Vital Signs Temp Pulse Resp BP Pulse Ox O2 Del Method 97.8 F 120 H 17 102/70 97 Room Air 04/13/25 12:00 04/13/25 12:00 04/13/25 12:00 04/13/25 12:00 04/13/25 12:00 04/13/25 12:00 Narrative Exam General: No acute distress, well nourished Eye: PERRL, EOMI, normal conjunctiva, no scleral icterus HENT: Normocephalic, atraumatic, hearing intact to conversation at normal volume, moist oral mucosa Neck: Supple, non-tender, no JVD, no lymphadenopathy Lungs: Non-labored respirations, symmetric chest rise Heart: Peripheral pulses intact bilaterally Abdomen: Soft, non-tender, non-distended Musculoskeletal: Normal range of motion and strength Skin: +hematoma and bruiding of left hip Psychiatric: Cooperative, appropriate mood and affect Neurologic: Mental status: Orientation: Oriented to person, place, time, and situation Communication: Patient is cooperative and can follow simple instructions Language:Mildly slurred speech, normal rate and volume, comprehension intact Cranial nerves: CN II: Visual hsu intact CN III: Pupils equal, round, and reactive to light CN III, IV, : No gaze deviation, no nystagmus Horizontal pursuit: intact Vertical pursuit: intact Ptosis: none CN V: Facial sensation to light touch intact bilaterally at the forehead, cheeks, and jaw line CN VII: Face symmetric, no facial droop appreciated on smile (patient's left mouth lower than right at baseline) CN VIII: Able to hear and respond to conversation at normal volume, intact to finger rub CN IX, X: Palate elevation symmetric, uvula midline CN XI: Head turn and shoulder shrug strong, symmetric bilaterally CN XII: Normal tongue protrusion without deviation, no fasciculations Motor: Normal bulk and tone No atrophy No abnormal movements or fasciculations Muscle strength: Shoulder abduction: R 5/5 L 5/5 Elbow flexion: R 5/5 L 5/5 Elbow extension: R 5/5 L 5/5 Hip flexion: R 5/5 L 5/5 Hip extension: R 5/5 L 5/5 Knee flexion: R 5/5 L 5/5 Knee extension: R 5/5 L 5/5 Sensory: RUE: Light touch intact LUE: Light touch intact RLE: Light touch intact LLE: Light touch intact Reflexes: Biceps (C5-6): R 2+ L 2+ Brachioradialis (C5-6): R 2+ L 2+ Triceps (C7-8): R 2+ L 2+ Patellae (L3-4): R 2+ L 2+ Achilles (S1-2):R 2+ L 2+ Objective Labs 04/13/25 05:36 04/13/25 06:52 Labs: Laboratory Results - last 24 hr 04/12/25 04/13/25 04/13/25 17:57 05:36 06:52 WBC 6.6 RBC 4.02 Hgb 13.8 13.0 Hct 41.0 39.0 MCV 97 MCH 32.3 MCHC 33.3 RDW Std Deviation 45.8 Plt Count 299 D Neut % (Auto) 62 Lymph % (Auto) 24 [place] % (Auto) 9 Eos % (Auto) 4 Baso % (Auto) 1 Neut # (Auto) 4.1 Lymph # (Auto) 1.5 [place] # (Auto) 0.6 Eos # (Auto) 0.3 Baso # (Auto) 0.0 Immature Gran # (Auto) 0.02 H Absolute Nucleated RBC 0.00 Immature Gran % 0 Nucleated RBC % 0 PT 10.9 INR 1.0 Sodium 134 L Potassium 4.0 Chloride 100 Carbon Dioxide 27.6 Anion Gap 6 L BUN 10 Creatinine 0.8 Estim Creat Clear Calc 65.8 eGFR > 60 BUN/Creatinine Ratio 13 Glucose 126 H Calculated Osmolality 269 L Calcium 8.9 Corrected Calcium 9.2 Phosphorus 3.7 Magnesium 1.6 Total Bilirubin 0.9 AST 61 H ALT 49 Alkaline Phosphatase 99 D Total Protein 6.5 Albumin 3.6 Globulin 2.9 Albumin/Globulin Ratio 1.2 Quality Measures Quality Measures VTE prophylaxis Advance care planning discussed with:: patient Assessment & Plan Assessment Current Active Medications: Generic Name Dose Route Start Last Admin Trade Name Freq PRN Reason Stop Dose Admin Acetaminophen 650 mg 04/09/25 22:44 04/11/25 08:19 Acetaminophen 325 Mg Tablet PO 05/09/25 22:43 650 mg Q6H PRN Administration PAIN SCALE 1-3 (mild Hydrocodone Bitart/Acetaminophen 1 tab 04/13/25 14:16 Hydrocodone/Apap 5/325 Tablet PO 04/18/25 14:15 Q6HR PRN PAIN SCALE 4-6 (Moderate Albuterol 2 puff 04/10/25 05:54 Albuterol Inh 8 Gm INH 05/09/25 22:57 Q4H PRN sob Alendronate Sodium 70 mg 04/12/25 09:00 04/12/25 08:45 Alendronate Sodium 70 Mg Tablet PO 05/12/25 08:59 70 mg QWEEK@0600 WILLIAM Administration Aspirin 81 mg 04/10/25 09:00 04/13/25 08:11 Aspirin Ec 81 Mg Tabec PO 05/10/25 08:59 81 mg QDAY WILLIAM Administration Atorvastatin Calcium 40 mg 04/10/25 21:00 04/12/25 20:15 Atorvastatin Calcium 20 Mg Tablet PO 05/10/25 20:59 40 mg HS WILLIAM Administration Clopidogrel Bisulfate 75 mg 04/10/25 09:00 04/12/25 08:47 Clopidogrel Bisulfate 75 Mg Tablet PO 05/10/25 08:59 75 mg QDAY WILLIAM Administration Dextrose 25 ml 04/09/25 22:49 Dextrose 50%-Water Inj 50 Ml Syringe IV 05/09/25 22:48 Q15MIN PRN BG 50-70 responsive npo pt Dextrose 50 ml 04/09/25 22:49 Dextrose 50%-Water Inj 50 Ml Syringe IV 05/09/25 22:48 Q15MIN PRN BG <50 OR BG <70 & pt unresponsive Duloxetine HCl 60 mg 04/11/25 17:00 04/13/25 08:11 Duloxetine Hcl 30 Mg Capsule PO 05/11/25 16:59 60 mg DAILY WILLIAM Administration Glucagon 1 mg 04/09/25 22:49 Glucagon Inj 1 Mg Vial IM Q15MIN PRN BG <70, and no IV access Heparin Sodium (Porcine) 5,000 unit 04/10/25 09:00 04/12/25 08:48 Heparin Sod Inj 5000 Unit/Ml Vial SC 04/24/25 08:59 5,000 unit Q12HR WILLIAM Administration Insulin Human Lispro 0 unit 04/10/25 07:30 04/13/25 11:22 Insulin Lispro (Admelog) 1 Unit/0.01 Ml Unit SC 05/10/25 07:29 Not Given ACHS WILLIAM Protocol Levothyroxine Sodium 100 mcg 04/10/25 06:00 04/13/25 05:35 Levothyroxine Sodium 100 Mcg Tablet PO 05/10/25 05:59 100 mcg ACBR WILLIAM Administration Morphine Sulfate 0.5 mg 04/13/25 14:18 Morphine Sulf Inj 10 Mg/Ml Vial IVP 04/17/25 19:52 Q4HR PRN PAIN SCALE 7-10 (Severe Nebivolol 10 mg 04/11/25 10:00 04/13/25 10:34 Nebivolol Hcl 5 Mg Tablet (Non-Formulary) PO 05/11/25 09:59 10 mg QDAY WILLIAM Administration Ondansetron HCl 4 mg 04/09/25 20:48 04/12/25 22:35 Ondansetron Inj 2 Mg/Ml Inj 2 Ml IVP 05/09/25 20:47 4 mg Q4HR PRN Administration NAUSEA OR VOMITING Polyethylene Glycol 17 gm 04/12/25 09:00 04/13/25 08:11 Polyethylene Glycol 17 Gm Packet PO 05/12/25 08:59 17 gm QDAY WILLIAM Administration Sennosides 1 tab 04/09/25 22:44 04/11/25 08:19 Senna Tablet PO 05/09/25 22:43 1 tab QDAY PRN Administration constipation Protocol Plan # Left-sided weakness of face and LLE # Right basal ganglia ischemic stroke #Fall with head strike Initial presentation: Left-sided weakness of the face and lower extremity. LKAW 04/09 at 12 PM. Initial NIHSS 3. BP and glucose within normal limits, no electrolyte abnormalities Symptoms have now resolved. Patient also notes imbalance that is positional on standing. Not noted on physical exam as Romberg was negative and patient's gait was unremarkable. CT head without contrast was negative for acute hemorrhage, midline shift, mass effect. CTA head/neck was negative for LVO. MR stroke protocol: 20 mm acute infarct right basal ganglia EKG showed normal sinus rhythm at 71 with right bundle branch block, QTc 474 A1c 5.8 Lipids within normal limits TTE with normal EF (55?60%) and negative bubble study PT eval 04/11: acute PT rehab 04/12: patient had fall (2/2 dizziness, + orthostatics) with head strike, left hip hematoma. Repeat CT head without contrast negative for acute hemorrhage. Hip/pelvis XR negative for acute fracture. C spine XR no acute cervical fracture. Plan: - Continue ASA 81 mg daily - Continue high intensity statin - Can continue Plavix 75 mg daily in the setting of hematoma, per general surgery # Asymptomatic UTI Patient denies urinary symptoms including burning, urgency, frequency Ucx + E coli Plan: - Management per primary team # Left hip hematoma CT abd/pelvis w/: Hematoma lateral to the left hip 4.9 x 3.7 x 10.7 cm Plan: - Management per primary team Plan discussed with Dr. Shawnee Alexander, PGY1 Attending Provider Attestation/Addendum I personally have seen and examined the patient at the bedside and I agreed with the resident's findings, assessment and plan of care. Continue with aspirin, Plavix and statin and the left hip hematoma is resolving slowly. Left lower extremity weakness is improving and patient is ambulatory. Waiting for placement
[2025-04-13] MEDS: HYDROcodone/APAP 5/325 TABLET 1 TAB PO ×2 (15:19→20:38)
--- NOTE | 2025-04-13 15:52 | PC.NURSE ---
Dr. Baez called asked about patient. Doctor Sasha says unable to come at this time. Will come later on.
--- NOTE | 2025-04-13 16:49 | ESPR_ITS ---
<Statement entered by Roberth Santos MD - 04/13/25 18:20> Patient was seen and examined at the bedside. Patient complained of tenderness over her left hip due to hematoma. Pain medications were given. Patient was seen by surgeon and no plans for evacuation of hematoma were made. Patient be discharged tomorrow since we had issues with transfer today. Continuing aspirin and Plavix. Heparin was discontinued given hematoma. Anticipating discharge tomorrow. I discussed and supervised with the tax services intern physician who took care of this patient. I personally saw and examined the patient. I agree with most of the assessment and plan. Disclaimer: Despite multiple revisions, due to the dictation software being used, the document bellow may not be free of grammatical errors including phonetic/typographic errors. However, this does not deter from our commitment to providing health care in the patient's best interest in mind. Plan of care discussed with attending Physician Dr. Michelle Santos MD PGY-3 Documentation for date of: 04/13/25 Subjective Subjective Interval history: Patient seen at bedside this morning. She reports feeling overall better compared to prior days. Denies any new symptoms such as headache, dizziness, nausea, vomiting, chest pain, shortness of breath, or visual changes. She continues to report left hip pain but states the swelling has improved she is lying on her right side comfortably. She denies any numbness or tingling in her left leg. No complaints of abdominal pain, bowel changes, or urinary symptoms. Still no bowel movement at the time of visit despite MiraLAX. Exam Vital Signs Temp Pulse Resp BP Pulse Ox O2 Del Method 97.8 F 57 L 17 102/70 97 Room Air 04/13/25 12:00 04/13/25 15:45 04/13/25 12:00 04/13/25 12:00 04/13/25 12:04/13/25 12:00 Narrative Exam General: Alert, pleasant, laying on right side in no acute distress HEENT: Mild left facial droop, normocephalic, atraumatic, PERRLA, EOMI Neck: Supple, no JVD or lymphadenopathy CV: RRR, no murmurs, rubs, or gallops Resp: Clear to auscultation bilaterally, non-labored breathing Abdomen: Soft, non-tender, non-distended, normal bowel sounds Extremities: * Left lateral hip: Tender, fluctuant soft tissue swelling; decreased since yesterday * No edema or deformities in limbs, full ROM * Pulses 2+ bilaterallyNeuro: Oriented x3, CN II?XII intact except for persistent mild L facial droop; strength 5/5 in all extremities; handwriting remains impaired Objective Labs 04/14/25 05:14 04/14/25 05:14 Labs: Laboratory Results - last 24 hr 04/12/25 04/13/25 04/13/25 17:57 05:36 06:52 WBC 6.6 RBC 4.02 Hgb 13.8 13.0 Hct 41.0 39.0 MCV 97 MCH 32.3 MCHC 33.3 RDW Std Deviation 45.8 Plt Count 299 D Neut % (Auto) 62 Lymph % (Auto) 24 Powell % (Auto) 9 Eos % (Auto) 4 Baso % (Auto) 1 Neut # (Auto) 4.1 Lymph # (Auto) 1.5 Powell # (Auto) 0.6 Eos # (Auto) 0.3 Baso # (Auto) 0.0 Immature Gran # (Auto) 0.02 H Absolute Nucleated RBC 0.00 Immature Gran % 0 Nucleated RBC % 0 PT 10.9 INR 1.0 Sodium 134 L Potassium 4.0 Chloride 100 Carbon Dioxide 27.6 Anion Gap 6 L BUN 10 Creatinine 0.8 Estim Creat Clear Calc 65.8 eGFR > 60 BUN/Creatinine Ratio 13 Glucose 126 H Calculated Osmolality 269 L Calcium 8.9 Corrected Calcium 9.2 Phosphorus 3.7 Magnesium 1.6 Total Bilirubin 0.9 AST 61 H ALT 49 Alkaline Phosphatase 99 D Total Protein 6.5 Albumin 3.6 Globulin 2.9 Albumin/Globulin Ratio 1.2 Quality Measures Quality Measures VTE prophylaxis Advance care planning discussed with:: patient Assessment & Plan Assessment Current Active Medications: Generic Name Dose Route Start Last Admin Trade Name Freq PRN Reason Stop Dose Admin Acetaminophen 650 mg 04/09/25 22:44 04/11/25 08:19 Acetaminophen 325 Mg Tablet PO 05/09/25 22:43 650 mg Q6H PRN Administration PAIN SCALE 1-3 (mild Hydrocodone Bitart/Acetaminophen 1 tab 04/13/25 14:16 Hydrocodone/Apap 5/325 Tablet PO 04/18/25 14:15 Q6HR PRN PAIN SCALE 4-6 (Moderate Albuterol 2 puff 04/10/25 05:54 Albuterol Inh 8 Gm INH 05/09/25 22:57 Q4H PRN sob Alendronate Sodium 70 mg 04/12/25 09:00 04/12/25 08:45 Alendronate Sodium 70 Mg Tablet PO 05/12/25 08:59 70 mg QWEEK@0600 WILLIAM Administration Aspirin 81 mg 04/10/25 09:00 04/13/25 08:11 Aspirin Ec 81 Mg Tabec PO 05/10/25 08:59 81 mg QDAY WILLIAM Administration Atorvastatin Calcium 40 mg 04/10/25 21:00 04/12/25 20:15 Atorvastatin Calcium 20 Mg Tablet PO 05/10/25 20:59 40 mg HS WILLIAM Administration Clopidogrel Bisulfate 75 mg 04/13/25 17:00 Clopidogrel Bisulfate 75 Mg Tablet PO 05/13/25 16:59 QDAY WILLIAM Dextrose 25 ml 04/09/25 22:49 Dextrose 50%-Water Inj 50 Ml Syringe IV 05/09/25 22:48 Q15MIN PRN BG 50-70 responsive npo pt Dextrose 50 ml 04/09/25 22:49 Dextrose 50%-Water Inj 50 Ml Syringe IV 05/09/25 22:48 Q15MIN PRN BG <50 OR BG <70 & pt unresponsive Duloxetine HCl 60 mg 04/11/25 17:00 04/13/25 08:11 Duloxetine Hcl 30 Mg Capsule PO 05/11/25 16:59 60 mg DAILY WILLIAM Administration Glucagon 1 mg 04/09/25 22:49 Glucagon Inj 1 Mg Vial IM Q15MIN PRN BG <70, and no IV access Insulin Human Lispro 0 unit 04/10/25 07:30 04/13/25 11:22 Insulin Lispro (Admelog) 1 Unit/0.01 Ml Unit SC 05/10/25 07:29 Not Given ACHS [facility] Protocol Levothyroxine Sodium 100 mcg 04/10/25 06:00 04/13/25 05:35 Levothyroxine Sodium 100 Mcg Tablet PO 05/10/25 05:59 100 mcg ACBR WILLIAM Administration Morphine Sulfate 0.5 mg 04/13/25 14:18 Morphine Sulf Inj 10 Mg/Ml Vial IVP 04/17/25 19:52 Q4HR PRN PAIN SCALE 7-10 (Severe Nebivolol 10 mg 04/11/25 10:00 04/13/25 10:34 Nebivolol Hcl 5 Mg Tablet (Non-Formulary) PO 05/11/25 09:59 10 mg QDAY WILLIAM Administration Ondansetron HCl 4 mg 04/09/25 20:48 04/12/25 22:35 Ondansetron Inj 2 Mg/Ml Inj 2 Ml IVP 05/09/25 20:47 4 mg Q4HR PRN Administration NAUSEA OR VOMITING Polyethylene Glycol 17 gm 04/12/25 09:00 04/13/25 08:11 Polyethylene Glycol 17 Gm Packet PO 05/12/25 08:59 17 gm QDAY WILLIAM Administration Sennosides 1 tab 04/09/25 22:44 04/11/25 08:19 Senna Tablet PO 05/09/25 22:43 1 tab QDAY PRN Administration constipation Protocol Plan 70 female with ischemic stroke (right basal ganglia infarct), persistent left facial droop and micrographia, recent fall with left hip hematoma, now improving. Also reports chronic dysphagia. Patient medically clear awaiting transfer to acute rehab center in [place]. # Acute ischemic stroke (right basal ganglia infarct) Confirmed infarct on MRI; persistent but stable neuro deficits (facial droop, handwriting, subjective left lower extremity weakness) Neuro has cleared, CT/CTA negative TTE with normal EF (55?60%) and negative bubble study Hold discharge for now due to fall Plan: * Continue dual antiplatelet (ASA 81 mg + Clopidogrel 75 mg daily) * Continue Atorvastatin 40 mg nightly * Q4 neuro checks * Resumed home medications Nebivolol * PT evaluation for final dispo # Fall with left hip hematoma Patient fell while attempting to go to the bathroom alone did not lift left side, and struck her left occipital scalp. Alert and oriented. No loss of consciousness. Large soft tissue hematoma (4.9 x 3.7 x 10.7 cm), no fracture on on CT/X-ray Swelling improved today; pain remains but tolerable Surgery Dr Ho cleared patient medically Plan: * Started patient on [place] for pain management * Neurochecks Q 4H * Monitor for progression of swelling * Anticoagulants were held yesterday but resumed at this afternoon * DC'd heparin on SCDs now * Fall precautions reinforced- patient educated to call for assistance #Chronic dysphagia (solids) Patient reports food occasions that he feels stuck?not previously disclosed CT abdomen pelvis showed abnormal esophagus, fluid distended with wall thickening, which may relate to reflux. Plan: * Consider outpatient esophagogram. CT findings * Evaluate need for GI referral * monitor oral intake, continue soft cardiac diet # Hypertension BP stable; 24-hour since permissive hypertension Plan: * Resume Nebivolol home medication * Patient denies taking amlodipine so we will hold # Hypothyroidism Plan: * Continue levothyroxine 100 mcg daily # Hyperlipidemia Plan: * Continue Atorvastatin, monitor for myopathy * Monitor for statin related symptoms # Hyperglycemia Plan: * Sliding scale insulin * A1c 5.8% Health Maintenance: * Diet: Cardiac * IVF: NS * DVT prophylaxis: SCD * Code: Full * Disposition: medically cleared, pending transfer to acute rehab center ----- Plan discussed with attending physician Dr. Martinez and senior resident Dr. Danielle Gill MD PGY-1 Internal Medicine Attending Provider Attestation/Addendum I attest that I was physically present for the evaluation, physical examination, lab and imaging review of the patient with the residents. I discussed the case with the residents and agree with the findings and plans of care as documented above. Yisel Martinez MD
--- NOTE | 2025-04-13 16:50 | PD.SURCONS ---
HPI Consult details Consult date: 04/13/25 Reason for consultation narrative: Patient was seen for the presence of a large hematoma following a fall last night Meds Home Medications and Allergies Home Medications ?Medication ?Instructions ?Recorded ?Confirmed ?Type Levothyroxine * (SYNTHROID *) 100 mcg PO ACBR #0 tabs 08/20/16 04/10/25 History dupilumab 300 mg/2 mL subcutaneous 300 mg subcut .q2week 04/09/25 04/09/25 History syringe (Dupixent) modafinil 200 mg tablet 200 mg PO QDAY 04/09/25 04/09/25 History nebivolol 10 mg tablet 10 mg PO QDAY 04/09/25 04/09/25 History alendronate 70 mg tablet 70 mg PO .WEEKLY 04/10/25 04/10/25 History duloxetine 60 mg capsule,delayed 60 mg PO DAILY 04/10/25 04/10/25 History release magnesium carb,citrate,oxide 420 mg PO DAILY 04/10/25 04/10/25 History (Magnesium Complex) Allergies Allergy/AdvReac Type Severity Reaction Status Date / Time codeine Allergy Severe Hives Verified 07/26/22 10:16 hydrocodone (From [place]) Allergy Severe Hives Verified 07/26/22 10:16 Sulfa (Sulfonamide Allergy Severe Hives Verified 07/06/21 14:49 Antibiotics) cephalexin AdvReac Severe caused Verified 07/06/21 14:49 colitis infection Exam Vital Signs Temp Pulse Resp BP Pulse Ox O2 Del Method 97.8 F 57 L 17 102/70 97 Room Air 04/13/25 12:00 04/13/25 15:45 04/13/25 12:00 04/13/25 12:00 04/13/25 12:00 04/13/25 12:00 Narrative Exam Examination revealed normal vital signs Routine Extremities Exam Comments: There is a large hematoma over the lateral aspect of the left thigh with some discoloration.
--- NOTE | 2025-04-13 16:51 | PD.SURCONS ---
HPI Consult details Consult date: 04/13/25 Reason for consultation narrative: Patient was seen in consultation because of a large hematoma left thigh following a fall last night Meds Home Medications and Allergies Home Medications ?Medication ?Instructions ?Recorded ?Confirmed ?Type Levothyroxine * (SYNTHROID *) 100 mcg PO ACBR #0 tabs 08/20/16 04/10/25 History dupilumab 300 mg/2 mL subcutaneous 300 mg subcut .q2week 04/09/25 04/09/25 History syringe (Dupixent) modafinil 200 mg tablet 200 mg PO QDAY 04/09/25 04/09/25 History nebivolol 10 mg tablet 10 mg PO QDAY 04/09/25 04/09/25 History alendronate 70 mg tablet 70 mg PO .WEEKLY 04/10/25 04/10/25 History duloxetine 60 mg capsule,delayed 60 mg PO DAILY 04/10/25 04/10/25 History release magnesium carb,citrate,oxide 420 mg PO DAILY 04/10/25 04/10/25 History (Magnesium Complex) Allergies Allergy/AdvReac Type Severity Reaction Status Date / Time codeine Allergy Severe Hives Verified 07/26/22 10:16 hydrocodone (From [place]) Allergy Severe Hives Verified 07/26/22 10:16 Sulfa (Sulfonamide Allergy Severe Hives Verified 07/06/21 14:49 Antibiotics) cephalexin AdvReac Severe caused Verified 07/06/21 14:49 colitis infection Exam Vital Signs Temp Pulse Resp BP Pulse Ox O2 Del Method 97.8 F 57 L 17 102/70 97 Room Air 04/13/25 12:00 04/13/25 15:45 04/13/25 12:00 04/13/25 12:00 04/13/25 12:00 04/13/25 12:00 Routine Extremities Exam Comments: Examination revealed fairly large hematoma with some fluctuation and ecchymosis Assessment & Plan Additional Assessment Additional comments: Impression: Hematoma left thigh Plan Plan: We shall just observe this hematoma because we cannot evacuate it now because it will cause infection and ongoing bleeding. I suggest cold packs for 24 hours. Patient could be discharged for physical therapy
[2025-04-13] MEDS: CLOPIDOGREL BISULFATE 75 MG TABLET PO (17:09)
[2025-04-13] MEDS: INSULIN LISPRO (AdmeLOG) 1 UNIT/0.01 ML UNIT SC (20:38)
[2025-04-13] MEDS: ATORVASTATIN CALCIUM 20 MG TABLET 40 MG PO (20:38)
[2025-04-14] VITALS (7 sets, daily range): BP systolic 108–125; BP diastolic 57–68; PULSE 53–92; RESP 15–20; TEMP 36.1–36.9; O2SAT 92–98; BMI 25.7
[2025-04-14] MEDS: LEVOTHYROXINE SODIUM 100 MCG TABLET PO (05:09)
[2025-04-14 06:07] LABS: Basophils # (Auto) 0.1 Thou/mm3 (0.0-0.2); Basophils % (Auto) 1 % (0-2.5); Eosinophils # (Auto) 0.3 Thou/mm3 (0.0-0.5); Eosinophils % (Auto) 5 % (0-10); Hematocrit 38.3 % (36.0-46.0); Hemoglobin 12.8 g/dL (12.0-16.0); Immature Granulocytes Auto 0.02 Thou/mm3 (0.00-0.00); Lymphocytes # (Auto) 1.6 Thou/mm3 (1.0-4.8); Lymphocytes % (Auto) 27 % (10-50); Mean Corpuscular HGB Conc 33.4 g/dl (31.0-37.0); Mean Corpuscular Hemoglobin 31.4 pg (25.0-35.0); Mean Corpuscular Volume 94 fL (80-100); Monocytes # (Auto) 0.6 Thou/mm3 (0.0-0.8); Monocytes % (Auto) 11 % (0-12); Neutrophils # (Auto) 3.3 Thou/mm3 (1.8-7.7); Neutrophils % (Auto) 56 % (37-80); Nucleated Red Blood Cell # 0.00 Thou/mm3 (0.00-0.00); Nucleated Red Blood Cell % 0 /100 WBC (0); Platelet Count 212 Thou/mm3 (140-440); RDW Standard Deviation 44.2 fL (36.4-46.3); Red Blood Count 4.07 Miln/mm3 (4.00-5.20); White Blood Count 5.9 Thou/mm3 (3.6-11.0)
[2025-04-14 06:27] LABS: Alanine Aminotransferase 40 U/L (10-49); Albumin, Serum 3.8 gm/dL (3.4-4.8); Albumin/Globulin Ratio 1.3 (1.2-2.2); Alkaline Phosphatase 85 U/L (46-116); Anion Gap 9 (7-16); Aspartate Amino Transferase 35 U/L (0-34); BUN/Creatinine Ratio 18 Ratio (12-20); Bilirubin,Total 0.9 mg/dL (0.3-1.2); Blood Urea Nitrogen 14 mg/dL (9-23); Calcium 9.3 mg/dL (8.3-10.6); Calcium (Corrected) 9.5 mg/dL (8.5-10.1); Carbon Dioxide 27.9 mMol/L (20.0-31.0); Chloride 100 mMol/L (98-107); Creatinine (Component) 0.8 mg/dL (0.6-1.3); Estimated Creatinine Clearance 65.8 mL/min (>60); Globulin 3.0 gm/dL (2.3-3.5); Glucose 115 mg/dL (74-106); Magnesium 1.7 mg/dL (1.6-2.6); Osmolality,Calculated 275 (275-295); Phosphorous 4.0 mg/dL (2.4-5.1); Potassium 4.1 mMol/L (3.4-5.1); Sodium 137 mMol/L (136-145); Total Protein 6.8 gm/dL (5.7-8.2); eGFR > 60 See Note
[2025-04-14] MEDS: DULoxetine HCL 30 MG CAPSULE 60 MG PO (09:54)
[2025-04-14] MEDS: ASPIRIN EC 81 MG TABEC PO (09:54)
[2025-04-14] MEDS: POLYETHYLENE GLYCOL 17 GM PACKET PO (09:54)
[2025-04-14] MEDS: CLOPIDOGREL BISULFATE 75 MG TABLET PO (09:55)
[2025-04-14] MEDS: NEBIVOLOL HCL 5 MG TABLET (NON-FORMULARY) 10 MG PO (09:55)
--- NOTE | 2025-04-14 10:47 | PC.SS ---
SS follow up note; [facility] SS contacted [facility] services and they are able to provide transportation at 1:00 PM. SS contacted patient's nurse Rubén and updated him with ETA. SS will also update patient as well.
--- NOTE | 2025-04-14 12:46 | PC.NURSE ---
RN called report to [facility] rehab at 1245 pm on 04/14. ETA for patient chicken picker is 1300.
--- NOTE | 2025-04-14 13:56 | ESDS_ITS ---
<Statement entered by Tracy Bruner DO - 04/15/25 08:12> I, Tracy Bruner DO, attest that I was physically present for the lobo portions of the service and evaluated the patient with the resident and I reviewed and discussed the case with the resident and agree with the resident's findings and plans of care as documented above <Statement entered by Luis Armando Jean-Baptiste MD - 04/14/25 14:56> Patient seen and examined at bedside. I discussed and supervised with the manager of internal audit physician who took care of this patient. I personally saw and examined the patient. I agree with most of the assessment and plan. Plan of care discussed with attending Dr. Bruner. Luis Armando Jean-Baptiste MD PGY-2 Planned Discharge Date 04/14/25 DS: Providers Provider Date of admission: 04/09/25 23:02 Primary care physician: Physician No Primary/Family Admitting Provider: Carlos Fermin DO Attending Provider on Admission: Yisel Martinez MD Consults: 04/09/25 20:48 Consult to Neurology / Tele-Neurology Routine Comment: Consulting Provider: [facility] 04/09/25 22:47 Referral Physical Therapy Routine Comment: Physician Instructions: 04/09/25 22:59 Consult to Neurology / Tele-Neurology Stat Comment: cvo wkup Consulting Provider: Favian Mallory 04/11/25 14:04 Referral Speech Therapy Routine Comment: 04/13/25 15:22 Consult to General Surgery Routine Comment: Hematoma Consulting Provider: Emma George Attending Provider on DC: Dr. Bruner Discharging Provider: RESIDENT Nola DS: Diagnosis Problem List Completed Was Problem List Reviewed/Reconciled?: Yes Hospital Course Hospital Course Hospital course: 70-year-old female with a history of hypertension, hypothyroidism, and hyperlipidemia presented on 04/09/25 with acute left facial droop, left lower extremity weakness, and difficulty with handwriting. She was outside the tPA window on arrival. CT head and CTA neck were negative. Neurology was consulted (NIHSS 3), and she was admitted for stroke workup. MRI brain confirmed an acute 20 mm infarct in the right basal ganglia. She was started on dual antiplatelet therapy (aspirin, clopidogrel) and atorvastatin. She remained neurologically stable throughout the admission, with persistent but non-worsening symptoms. TTE showed EF 55?60%, no thrombus or PFO. Swallow screen was passed and she has been tolerating a cardiac diet. PT and speech therapy evaluated the patient and recommended acute inpatient rehabilitation. However, on 04/12/25, the patient experienced a fall while attempting to ambulate independently to the bathroom, striking the left posterior side of her head. She was found seated on the floor, alert and oriented. Head CT showed no acute hemorrhage. Pelvis and hip X-rays revealed no fracture. CT pelvis showed a large left lateral hip hematoma measuring 4.9 x 3.7 x 10.7 cm. C-spine X-ray showed no acute fracture, but advanced degenerative changes with recommendation for Swimmer?s view to assess C7. Following the fall, all anticoagulants were discontinued except aspirin. STAT H&H was ordered, and general surgery consult was requested for hematoma evaluation. Dr. Ho cleared patient for discharge as he said it required no intervention and we resumed Plavix and changed heparin subcu to SCDs for VTE prophylaxis. On 04/13/2025, the patient reported improvement in swelling and overall condition. Hip pain persists but is tolerable. She is resting on her right side, alert and oriented. She newly disclosed chronic dysphagia to solids, which correlates with CT findings of a distended esophagus with wall thickening?likely related to reflux. An esophagram is recommended for further evaluation. She has no medically stable, cleared for transfer to acute rehab. She has no new complaints and the left hip hematoma continues to improve on exam. Diagnoses During Admission: #Acute ischemic stroke ? Right basal ganglia infarct (confirmed on MRI) #Left facial droop and micrographia ? Residual stroke deficits #Mechanical fall ? Occurred 04/12/25, post-stroke #Left hip hematoma ? 4.9 x 3.7 [address], no fracture #Chronic dysphagia to solids ? New complaint; correlated with CT findings #Hypertension ? Permissive initially; now controlled #Hypothyroidism ? On home levothyroxine #Hyperlipidemia ? On atorvastatin 40 mg #Hyperglycemia ? Managed with sliding scale insulin #Constipation ? resolved #Asymptomatic bacteriuria ? Positive E. coli, no treatment given Discharge Plans -Take aspirin 81 mg once daily and Plavix 75 mg once daily for 21 days -Take atorvastatin 40 mg at bedtime daily -Take Protonix 40mg once daily -Continue taking all medication as prescribed -Follow-up with your PCP as outpatient within a week -Follow-up with your neurologist as outpatient within a week -In case of emergency, call 911 and come back to the ED ----- Plan discussed with attending physician Dr. Bruner and senior resident Dr. Karlos MD PGY-1 Internal Medicine Time Spent with Patient Time attestation: Total time spent providing and/or coordinating discharge services: Time spent: Greater than 30 minutes Quality: Stroke Pt Provided Written Stroke Discharge Instructions: Yes Exam Vital Signs Temp Pulse Resp BP Pulse Ox O2 Del Method 97.1 F 56 L 17 116/68 98 Room Air 04/14/25 12:00 04/14/25 12:00 04/14/25 12:00 04/14/25 12:00 04/14/25 12:00 04/14/25 12:00 Narrative Exam Physical Exam at Discharge: General: Alert, pleasant, laying on right side in no acute distress HEENT: Mild left facial droop, normocephalic, atraumatic, PERRLA, EOMI Neck: Supple, no JVD or lymphadenopathy CV: RRR, no murmurs, rubs, or gallops Resp: Clear to auscultation bilaterally, non-labored breathing Abdomen: Soft, non-tender, non-distended, normal bowel sounds Extremities: * Left lateral hip: Tender, fluctuant soft tissue swelling; decreased since yesterday * No edema or deformities in limbs, full ROM * Pulses 2+ bilaterally Neuro: Oriented x3, CN II?XII intact except for persistent mild L facial droop; strength 5/5 in all extremities; handwriting remains impaired Discharge Plan Plan Patient Disposition: [facility]fer [facility] ([facility]) Patient condition on transfer: Stable Care Plan Goals: Take aspirin 81 mg once daily and Plavix 75 mg once daily for 21 days Take atorvastatin 40 mg at bedtime daily Take Protonix 40mg once daily Continue taking all medication as prescribed Follow-up with your PCP as outpatient within a week Follow-up with your neurologist as outpatient within a week In case of emergency, call 911 and come back to the ED Prescriptions/Referrals Prescriptions/Med Rec: New aspirin 81 mg Tablet,Delayed Release (Dr/Ec) 81 mg PO QDAY 21 Days Qty: 21 0RF atorvastatin 40 mg tablet 40 mg PO HS Qty: 90 0RF clopidogrel 75 mg Tablet 75 mg PO QDAY 21 Days Qty: 21 0RF pantoprazole [Protonix] 40 mg tablet,delayed release (DR/EC) 40 mg PO QDAY 30 Days Qty: 30 0RF Continued Levothyroxine * (SYNTHROID *) 100 MCG tablet 100 mcg PO ACBR Qty: 0 nebivolol 10 mg tablet 10 mg PO QDAY Patient Comments: TAKE 1 TABLET BY MOUTH DAILY modafinil 200 mg tablet 200 mg PO QDAY Dupixent Syringe 300 mg/2 mL syringe 300 mg subcut .q2week alendronate 70 mg tablet 70 mg PO .WEEKLY Patient Comments: TAKE 1 TABLET BY MOUTH EVERY WEEK duloxetine 60 mg capsule,delayed release(DR/EC) 60 mg PO DAILY Patient Comments: TAKE 1 CAPSULE BY MOUTH DAILY Magnesium Complex 300 mg magnesium tablet 420 mg PO DAILY Discontinued metronidazole [Flagyl] 500 mg tablet 500 mg PO BID gabapentin 300 mg capsule 300 mg PO TID methylphenidate HCl 18 mg tablet extended release 24hr 36 mg PO QDAY armodafinil [Nuvigil] 250 MG tablet 250 mg PO QDAY Qty: 0 amlodipine [Norvasc] 10 MG tablet 10 mg PO QDAY Qty: 0 tramadol 50 mg tablet 50 mg PO Q8H PRN (Reason: pain) Patient Comments: TAKE 1 TABLET BY MOUTH EVERY 6 TO 8 HOURS NEEDED diazepam 10 mg tablet 10 mg PO BID PRN (Reason: muscle spasm) Qty: 6 0RF Referrals: No Primary/Family,Physician [Primary Care Provider] - Favian Mallory MD [Physician] - Patient/Caregiver Discharge Instructions Education Materials: Stroke: Resources and Support, Hypertension Stroke Link, Discharge Instructions for Stroke, Risk Factors for Stroke, Stroke Regaining Movement, Stroke Self Care After, Stroke Prevent Another Caregiver, Stroke Prevention Activity Print Language: Indonesian Stand Alone Forms: Maria Elena Award Info., Patient Portal Info Letter Discharge Order Discharge Orders: Discharge (Routine); Ordered 04/14/25 Ordered By: Roberth Santos Quality Discharge Quality Measures VTE prophylaxis and VTE therapy
== END 2025-04-14 13:00 | disposition skilled nursing facility (03) | DRG 65 ==
LOC: SERX 23:02 → SERHOLD 23:04 → S2NX 23:31 → S3SX 04-12 21:33
PROVIDERS: Nurse Practitioner Family; Student in an Organized Health Care Education/Training Program; Admitting Provider Student in an Organized Health Care Education/Training Program; Emergency Provider Emergency Medicine; Visit Provider Student in an Organized Health Care Education/Training Program
DX: I63.89 Other cerebral infarction (principal); N39.0 Urinary tract infection, site not specified; R29.810 Facial weakness; I10 Essential (primary) hypertension; E03.9 Hypothyroidism, unspecified; Z96.651 Presence of right artificial knee joint; I45.10 Unspecified right bundle-branch block; R73.9 Hyperglycemia, unspecified; J44.9 Chronic obstructive pulmonary disease, unspecified; R47.81 Slurred speech; E78.00 Pure hypercholesterolemia, unspecified; K21.9 Gastro-esophageal reflux disease without esophagitis; R13.10 Dysphagia, unspecified; R29.703 NIHSS score 3; K59.00 Constipation, unspecified; S70.12XA Contusion of left thigh, initial encounter; K22.89 Other specified disease of esophagus; W19.XXXA Unspecified fall, initial encounter; S70.02XA Contusion of left hip, initial encounter; Z79.02 Long term (current) use of antithrombotics/antiplatelets; Z79.82 Long term (current) use of aspirin; Z79.890 Hormone replacement therapy; Z79.899 Other long term (current) drug therapy; Z87.81 Personal history of (healed) traumatic fracture
CPT/HCPCS: 36415; 70450; 70496; 70498; 70553; 72040; 73521; 74177; 80053; 80061; 80307; 81001; 83036; 83735; 84100; 84484; 84703; 85014; 85018; 85025; 85610; 85730; 87077; 87086; 87186; 92507; 92523; 92526; 93225; 93306; 94664; 97162; A4649; J1644; J1815; J2270; J2405; J3475; Q9967; A9270

== ENCOUNTER 2025-05-02 18:38 | Emergency (ER) | payer MEDICARE, BC, SELFPAY ==
[2025-05-02 18:40] VITALS: BMI 25.0
[2025-05-02 19:04] VITALS: BP 92/66; PULSE 73; RESP 18; TEMP 37.1; O2SAT 95
[2025-05-02 20:01] VITALS: BP 111/72; PULSE 57; RESP 18; TEMP 36.9; O2SAT 97
[2025-05-02] MEDS: ACETAMINOPHEN 325 MG TABLET 650 MG PO (22:20)
== END 2025-05-02 22:25 | disposition left against medical advice (07) ==
PROVIDERS: Emergency Provider Emergency Medicine
DX: Z53.21 Procedure and treatment not carried out due to patient leaving prior to being seen by health care provider (principal)
CPT/HCPCS: 99283; A9270

== ENCOUNTER 2025-08-22 16:32 | Emergency (ER) | payer MEDICARE, BC, SELFPAY ==
[2025-08-22 16:51] VITALS: BP 136/82; PULSE 82; RESP 16; TEMP 37.2; O2SAT 98
--- NOTE | 2025-08-22 16:51 | XR_ITS ---
Examination: CT brain head without contrast. 2-D sagittal coronal reconstructions Date and time of exam: August 22, 2025, 1724 hours INDICATIONS: Onset headache with slurred speech today, history 20 mm acute infarct right basal ganglia on brain MRI April 11, 2025 CTDI: vol (mGy): 43.6 DLP: (mGycm): 846 Technique: Multiple CT axial sections of the brain have been obtained, 5 mm slice thickness. Contrast has not been administered. 2-D sagittal, coronal reconstructions have been obtained Low dose protocols were performed. One or more of the following dose reduction techniques were used; automated exposure control, adjustment of the mA and/or KV according to patient size, use of iterative reconstruction technique. Findings: No significant ventricular enlargement. Old infarct right basal ganglia, tiny old infarct left basal ganglia Intra-axial or extra-axial hemorrhage density is not seen. No mass effect or midline shift Basal cisterns are not remarkable. Fourth ventricle is midline. Cranial vault intact. Impression: Negative for acute hemorrhage, mass effect or midline shift As clinically warranted, brain MRI follow-up would best assess for interval acute infarct
[2025-08-22 16:52] VITALS: BMI 26.3
--- NOTE | 2025-08-22 16:52 | PD.EDRME ---
Rapid Medical Screening Exam RME Arrival date/time: 08/22/25 16:32 70-year-old female with a history of hyperlipidemia, hypothyroidism, CVA, presents to the emergency room with a chief complaint of weakness, fatigue, headache, and per patient she has slobbering. I have greeted and performed a focused initial assessment of this patient. A comprehensive ED assessment and evaluation of the patient, analysis of all test results, and completion of the medical decision making process will be conducted by additional ED providers. Chief Complaint: General Adult/Misc Complain Time Seen by Provider: 08/22/25 16:33 Vital signs reviewed by provider: Yes Exam: GCS 15 alert and oriented x 3 pupils are PERRLA EOMs are intact the patient has a normal steady gait. Patient denies any unilateral numbness, facial droop, or slurred speech Clear bilateral lung sounds. Clinical Impression: Dehydration/electrolyte imbalance/urinary tract infection/TIA
[2025-08-22 17:18] LABS: Basophils # (Auto) 0.1 Thou/mm3 (0.0-0.2); Basophils % (Auto) 0 % (0-2.5); Eosinophils # (Auto) 0.2 Thou/mm3 (0.0-0.5); Eosinophils % (Auto) 2 % (0-10); Hematocrit 40.8 % (36.0-46.0); Hemoglobin 13.9 g/dL (12.0-16.0); Immature Granulocytes Auto 0.04 Thou/mm3 (0.00-0.00); Lymphocytes # (Auto) 1.9 Thou/mm3 (1.0-4.8); Lymphocytes % (Auto) 16 % (10-50); Mean Corpuscular HGB Conc 34.1 g/dl (31.0-37.0); Mean Corpuscular Hemoglobin 31.9 pg (25.0-35.0); Mean Corpuscular Volume 94 fL (80-100); Monocytes # (Auto) 0.7 Thou/mm3 (0.0-0.8); Monocytes % (Auto) 6 % (0-12); Neutrophils # (Auto) 8.5 Thou/mm3 (1.8-7.7); Neutrophils % (Auto) 75 % (37-80); Nucleated Red Blood Cell # 0.00 Thou/mm3 (0.00-0.00); Nucleated Red Blood Cell % 0 /100 WBC (0); Platelet Count 243 Thou/mm3 (140-440); RDW Standard Deviation 45.0 fL (36.4-46.3); Red Blood Count 4.36 Miln/mm3 (4.00-5.20); White Blood Count 11.4 Thou/mm3 (3.6-11.0)
[2025-08-22 17:42] LABS: Collection Type, Urine Clean Catch
[2025-08-22 18:04] LABS: Amorphous Crystals,Urine Present (Absent); Bacteria,Urine Rare; Bilirubin,Urine Negative (Negative); Blood,Urine Trace (Negative); Clarity,Urine Turbid (Clear/Hazy); Color,Urine Lt-Yellow (Lt Yel-Yel); Culture Indicated,Urine Not Indicated; Glucose, Urine Negative (Negative); Ketones,Urine Negative (Negative); Leukocyte Esterase,Urine Negative (Negative); Nitrite,Urine Negative (Negative); PH,Urine 6.0 (5.0-7.0); Protein,Urine Negative (Neg - Trace); RBC,Urine 2 /hpf (0-3); Specific Gravity,Urine 1.009 (1.001-1.035); Squamous Epithelial Cell,Urine 7 /hpf (0-5); Urobilinogen,Urine Negative mg/dL (0.0-1.0); WBC,Urine 2 /hpf (0-5)
[2025-08-22 18:08] LABS: Alanine Aminotransferase 14 U/L (10-49); Albumin, Serum 4.6 gm/dL (3.4-4.8); Albumin/Globulin Ratio 1.6 (1.2-2.2); Alkaline Phosphatase 63 U/L (46-116); Anion Gap 12 (7-16); Aspartate Amino Transferase 21 U/L (0-34); BUN/Creatinine Ratio 10 Ratio (12-20); Bilirubin,Total 1.0 mg/dL (0.3-1.2); Blood Urea Nitrogen 10 mg/dL (9-23); Calcium 9.9 mg/dL (8.3-10.6); Calcium (Corrected) 9.9 mg/dL (8.5-10.1); Carbon Dioxide 29.1 mMol/L (20.0-31.0); Chloride 98 mMol/L (98-107); Creatinine (Component) 1.0 mg/dL (0.6-1.3); Estimated Creatinine Clearance 54.9 mL/min (>60); Free T4 (Free Thyroxine) 1.22 ng/dL (0.89-1.76); Globulin 2.8 gm/dL (2.3-3.5); Glucose 130 mg/dL (74-106); Osmolality,Calculated 278 (275-295); Potassium 3.1 mMol/L (3.4-5.1); Sodium 139 mMol/L (136-145); Thyroid Stimulating Hormone 0.98 uIU/mL (0.55-4.78); Total Protein 7.4 gm/dL (5.7-8.2); eGFR > 60 See Note
[2025-08-22 19:46] VITALS: BP 173/98; PULSE 71; RESP 17; TEMP 36.8; O2SAT 100
--- NOTE | 2025-08-22 20:16 | EDNOTE_ITS ---
ED General RME/HPI General Chief complaint: General Adult/Misc Complain Stated complaint: POSSIBLE UTI, MUSCLE CRAMPING, FEELS DEHYDRATED Time Seen by Provider: 08/22/25 16:33 Arrival date/time: 08/22/25 16:32 RME / HPI RME / HPI narrative: 08/22/25 16:32 70-year-old female with a history of hyperlipidemia, hypothyroidism, CVA, presents to the emergency room with a chief complaint of weakness, fatigue, headache, and per patient she has slobbering. I have greeted and performed a focused initial assessment of this patient. A comprehensive ED assessment and evaluation of the patient, analysis of all test results, and completion of the medical decision making process will be conducted by additional ED providers. Dr. Herring?s Main ED Evaluation: 70yo female with a history of DM, HTN, HLD, asthma presents to the ED for a chief complaint of generalized weakness x today. Patient reports feeling fatigued and having cramping to her fingers. Patient denies any N/V/D, fever, chills, cough, chest pain, or any other associated symptoms. Patient does not take a water pill. Related Data Home Medications ?Medication ?Instructions ?Recorded ?Confirmed Levothyroxine * (SYNTHROID *) 100 mcg PO ACBR #0 tabs 08/20/16 04/10/25 dupilumab 300 mg/2 mL subcutaneous 300 mg subcut .q2we ek 04/09/25 04/09/25 syringe (Dupixent) modafinil 200 mg tablet 200 mg PO QDAY 04/09/2503/29 nebivolol 10 mg tablet 10 mg PO QDAY 04/09/2504/09 alendronate 70 mg tablet 70 mg PO .WEEKLY 04/10/25 duloxetine 60 mg capsule,delayed 60 mg PO DAILY 04/10/25 release magnesium carb,citrate,oxide 420 mg PO DAILY 04/10/25 04/10/25 (Magnesium Complex) Previous Rx's ?Medication ?Instructions ?Recorded atorvastatin 40 mg tablet 40 mg PO HS #90 tabs 5 Allergies Allergy/AdvReac Type Severity Reaction Status Date / Time codeine Allergy Severe Hives Verified 08/22/25 16:37 hydrocodone (From [place]) Allergy Severe Hives Verified 08/22/25 16:37 Sulfa (Sulfonamide Allergy Severe Hives Verified 08/22/25 16:37 Antibiotics) cephalexin AdvReac Severe caused Verified 08/22/25 16:37 colitis infection Review of Systems Review of Systems Systems Reviewed: All systems reviewed, normal except as documented Past Medical History Past Medical History CARDIAC: Positive Hypercholesterolemia and Hypertension; Negative Cardiac Disorders or Congestive Heart Failure RESPIRATORY: Positive Asthma (asthma); Negative Chronic Obstructive Pulmonary Disease (COPD) GENITOURINARY: Negative Renal Disease MUSCULOSKELETAL: Positive Carpal Tunnel Syndrome ENDOCRINE: Positive Diabetes Mellitus Type 2 and Hypothyroidism; Negative Diabetes Mellitus Type 1 HEMATOLOGIC: Negative Sickle Cell Disease PSYCHO/SOCIAL: Positive Depression Surgical History SURGICAL: Positive Nose Surgery, Gastric Bypass Surgery and Hysterectomy Social History SMOKING STATUS: Never smoker ED Exam Narrative Physical exam: Generally patient is alert and in no obvious distress, heart regular rate and rhythm, lungs clear to auscultation equal bilaterally, abdomen soft bowel sounds present also nontender, neurologic exam Steven Coma Scale of 15 without focal motor deficits Course Quality Measures none Orders Category Date Time Status CT head/brain wo con Stat Exams 08/22/25 16:51 Completed CBC Stat Lab 08/22/25 17:02 Completed CMP [Comprehensive Metabolic Panel] Stat Lab 08/22/25 17:02 Completed Free T4 (Free Thyroxine) Stat Lab 08/22/25 17:02 Completed TSH [Thyroid Stimulating Hormone] Stat Lab 08/22/25 17:02 Completed UA, C/S IF [Urinalysis, C/S if Indicated] Stat Lab 08/22/25 17:20 Completed Potassium Chloride [K-Dur] Med 08/22/25 20:28 Once 60 meq PO X1 ONE Vital Signs Vital signs: Vital Signs Temperature 98.9 F 08/22/25 16:51 Pulse Rate 82 08/22/25 16:51 Respiratory Rate 16 08/22/25 16:51 Blood Pressure 136/82 H 08/22/25 16:51 Pulse Oximetry (%) 98 08/22/25 16:51 Oxygen Delivery Method Room Air 08/22/25 16:51 Discharge Plan Plan Patient Disposition: HOME (Self Care) Prescriptions/Referrals Prescriptions/Med Rec: No Action Levothyroxine * (SYNTHROID *) 100 MCG tablet 100 mcg PO ACBR Qty: 0 nebivolol 10 mg tablet 10 mg PO QDAY Patient Comments: TAKE 1 TABLET BY MOUTH DAILY modafinil 200 mg tablet 200 mg PO QDAY Dupixent Syringe 300 mg/2 mL syringe 300 mg subcut .q2week alendronate 70 mg tablet 70 mg PO .WEEKLY Patient Comments: TAKE 1 TABLET BY MOUTH EVERY WEEK duloxetine 60 mg capsule,delayed release(DR/EC) 60 mg PO DAILY Patient Comments: TAKE 1 CAPSULE BY MOUTH DAILY Magnesium Complex 300 mg magnesium tablet 420 mg PO DAILY atorvastatin 40 mg tablet 40 mg PO HS Qty: 90 0RF Referrals: Willian Patten MD [Primary Care Provider] - In 1 week Problem List Clinical Impression: Hypokalemia Patient/Caregiver Discharge Instructions Education Materials: ED Hypokalemia Additional Instructions: Continue to stay hydrated. Follow-up with your doctor as needed. Return to ER as needed or if condition worsens. Print Language: Citizen Of [place] Stand Alone Forms: Maria Elena Award Info., Patient Portal Info Letter MDM Narrative MDM hospital course (for use when minimal MDM required): Scribe Attestation: 08/22/25 - Gardenia Sandoval am scribing for and in the presence of Dr. Herring. I interpreted all labs. Urine is not infected. Potassium is slightly low at 3.1. Patient received potassium chloride 60 mill equivalents p.o. here in the emergency room. Head CT is negative. I do not suspect stroke in this patient. Patient does have primary care to follow-up with. She may return to emergency room as needed or if condition worsens. Clinical Information Provided by: patient Medical Records reviewed [facility] (Per chart review, patient was admitted here on 04/09/25 for CVA.) Meds/Rx considered, not ordered None Labs/Rad/Tests considered, not ordered None Chronic Illness/Social Conditions Explain: Hx DM, HTN, HLD, asthma Labs Labs: interpreted by me Imaging Imaging interpretation: interpreted by me Imaging Interpretation(s): [place] [facility] Report Signed Patient: OLIVIA KRAMER [facility]. Record#: [id number] Birthdate: 1955 Age/Sex: 70 / F Location: [facility] Attending Dr: Ordering Physician: Danrde Gordon Date of Service: 08/22/25 Procedure(s): CT head/brain wo con Accession Number(s): [id number] cc: Dandre Gordon; WILLIAN PATTNE MD; Nik Feldman MD~ Examination: CT brain head without contrast. 2-D sagittal coronal reconstructions Date and time of exam: August 22, 2025, 1724 hours INDICATIONS: Onset headache with slurred speech today, history 20 mm acute infarct right basal ganglia on brain MRI April 11, 2025 CTDI: vol (mGy): 43.6 DLP: (mGycm): 846 Technique: Multiple CT axial sections of the brain have been obtained, 5 mm slice thickness. Contrast has not been administered. 2-D sagittal, coronal reconstructions have been obtained Low dose protocols were performed. One or more of the following dose reduction techniques were used; automated exposure control, adjustment of the mA and/or KV according to patient size, use of iterative reconstruction technique. Findings: No significant ventricular enlargement. Old infarct right basal ganglia, tiny old infarct left basal ganglia Intra-axial or extra-axial hemorrhage density is not seen. No mass effect or midline shift Basal cisterns are not remarkable. Fourth ventricle is midline. Cranial vault intact. Impression: Negative for acute hemorrhage, mass effect or midline shift As clinically warranted, brain MRI follow-up would best assess for interval acute infarct Dictated By: Nik Feldman MD Signed By: <Electronically signed by Nik Feldman MD in [place]> 08/22/25 2967 Medication Administration(s) Medication Administration History Potassium Chloride (Potassium Chloride 20 Meq Tabcr) 60 meq PO X1 ONE Stop: 08/22/25 20:29 see above Diagnosis Differential Diagnosis ED Complaint MDM: See MDM.
[2025-08-22 20:46] VITALS: BP 175/95; PULSE 77; RESP 18; TEMP 37; O2SAT 100
== END 2025-08-22 20:49 | disposition home or self-care (01) ==
PROVIDERS: Nurse Practitioner Family; Emergency Provider Emergency Medicine; PCP Family Medicine
DX: E87.6 Hypokalemia (principal); R51.9 Headache, unspecified; R47.81 Slurred speech; I10 Essential (primary) hypertension; E78.00 Pure hypercholesterolemia, unspecified
CPT/HCPCS: 36415; 70450; 80053; 81001; 84439; 84443; 85025; 99283; A9270